=== PATIENT | female | born 1975 | race Two or more races ===

== ENCOUNTER 2020-02-23 20:21 | Emergency (ER) | payer BC, MEDICAID ==
[~2020-02-23] VITALS: Ht 157.5 cm; Wt 68.0 kg
[2020-02-23 21:01] VITALS: BP 170/92
[2020-02-23] MEDS ORDERED: ONDANSETRON ODT 4 MG TAB PO ONE (21:15)
[2020-02-23] MEDS ORDERED: PANTOPRAZOLE 40 MG TAB PO ONE (21:15)
[2020-02-23] MEDS ORDERED: ACETAMINOPHEN/CODEINE#3 (300/30mg) TAB PO ONE (21:15)
[2020-02-23 22:28] LABS: Basophils # (auto) 0 10 ^3/uL (0-0.2); Basophils % (auto) 0.3 % (0.0-2.0); Eosinophils # (auto) 0 10 ^3/uL (0-0.8); Eosinophils % (auto) 0.3 % (0.0-7.0); Hematocrit 30.2 % (36.0-46.0); Hemoglobin 9.5 g/dL (12.2-16.2); Lymphocytes # (auto) 0.8 10 ^3/uL (0.4-5.4); Lymphocytes % (auto) 15.4 % (10.0-50.0); Mean Corpuscular Hemoglobin 24.5 pg (28.0-32.0); Mean Corpuscular Hgb Conc. 31.5 g/dL (32.0-36.0); Mean Corpuscular Volume 77.7 fL (80.0-100.0); Monocytes # (auto) 0.3 10 ^3/uL (0-1.3); Monocytes % (auto) 5.3 % (0.0-12.0); Neutrophils # (auto) 4.1 10 ^3/uL (1.6-8.6); Neutrophils % (auto) 78.7 % (37.0-80.0); Nucleated Red Blood Cells % 0.2 %; Platelet Count (auto) 210 10^3/uL (140-450); Red Blood Cells 3.89 10^6/uL (4.0-5.20); Red Cell Distribution Width 17.4 % (11.8-14.3); White Blood Cell 5.2 10^3/uL (4.4-10.8)
[2020-02-23 22:55] LABS: Alanine Aminotransferase 21 U/L (13-56); Albumin 3.7 g/dL (3.4-5.0); Alkaline Phosphatase 62 U/L (45-117); Amylase 56 U/L (25-115); Anion Gap 5 (5-15); Aspartate Aminotransferase 15 U/L (15-37); BUN/Creatinine Ratio 21.7; Bilirubin, Total 0.4 mg/dL (0.2-1.0); Blood Urea Nitrogen 18 mg/dL (7-18); Calcium 8.5 mg/dL (8.5-10.1); Carbon Dioxide 26 mmol/L (21-32); Chloride 110 mmol/L (98-107); GFR African American 97 mL/min; GFR Non-African American 80 mL/min; Glucose 93 mg/dL (74-106); Lipase 65 U/L (73-393); Potassium 3.1 mmol/L (3.5-5.1); Sodium 141 mmol/L (136-145); Total Protein 7.9 g/dL (6.4-8.2)
[2020-02-23] MEDS ORDERED: POTASSIUM CHL 20 Meq TABLET PO ONE (23:15)
[2020-02-23 23:16] LABS: Urine Bacteria NONE SEEN /hpf (None Seen); Urine Blood 1+ /uL (Negative); Urine Mucus FEW (None Seen); Urine Specific Gravity 1.023 (1.001-1.035); Urine WBC 3 /hpf (0 - 5)
[2020-02-23 23:35] LABS: Amphetamine Screen, Urine NEGATIVE (NEGATIVE); Barbiturate Scree,Urine NEGATIVE (NEGATIVE); Benzodiazephine Screen, Urine NEGATIVE (NEGATIVE); Cannabinoid Screen, Urine POSITIVE (NEGATIVE); Cocaine Screen, Urine NEGATIVE (NEGATIVE)
[2020-02-23 23:42] LABS: Opiate Scree,Urine NEGATIVE (NEGATIVE); Phencyclidine Screen, Urine NEGATIVE (NEGATIVE)
== END 2020-02-24 01:32 | disposition home or self-care (01) ==
LOC: ER 20:24
DX: K29.70 Gastritis, unspecified, without bleeding (principal); K59.00 Constipation, unspecified; D25.9 Leiomyoma of uterus, unspecified; D64.9 Anemia, unspecified; E86.0 Dehydration; E87.6 Hypokalemia; F12.10 Cannabis abuse, uncomplicated; N28.1 Cyst of kidney, acquired; I10 Essential (primary) hypertension; K21.9 Gastro-esophageal reflux disease without esophagitis; Z88.1 Allergy status to other antibiotic agents
CPT/HCPCS: 36415; 74176; 80053; 80307; 81001; 82150; 83690; 84484; 85025; 99284; Q0162

== ENCOUNTER 2021-02-26 17:00 | Emergency (ER) | payer BC, MEDICAID, OTHER ==
[~2021-02-26] VITALS: Ht 157.5 cm; Wt 70.3 kg
[2021-02-26 21:36] VITALS: BP 155/91
== END 2021-02-26 23:57 | disposition home or self-care (01) ==
LOC: ER 17:00
DX: S46.812A Strain of other muscles, fascia and tendons at shoulder and upper arm level, left arm, initial encounter (principal); S23.9XXA Sprain of unspecified parts of thorax, initial encounter; J45.909 Unspecified asthma, uncomplicated; I10 Essential (primary) hypertension; Z88.1 Allergy status to other antibiotic agents; V43.52XA Car driver injured in collision with other type car in traffic accident, initial encounter; Y93.89 Activity, other specified; Y92.410 Unspecified street and highway as the place of occurrence of the external cause; Y99.8 Other external cause status
CPT/HCPCS: 72070; 73060

== ENCOUNTER 2021-11-26 19:36 | Inpatient (IN) | payer BC, MEDICAID ==
[~2021-11-26] VITALS: Ht 157.5 cm; Wt 73.3 kg
[2021-11-26] MEDS ORDERED: NITROGLYCERIN 0.4 MG SL TAB SL ONE ×3 (20:06→21:30)
[2021-11-26] MEDS ORDERED: ASPirin 325 MG TAB PO ONE (20:15)
[2021-11-26 21:12] LABS: Albumin 3.3 g/dL (3.4-5.0); Calcium 8.3 mg/dL (8.5-10.1)
[2021-11-26 21:15] LABS: Basophils # (auto) 0 10 ^3/uL (0-0.2); Basophils % (auto) 0.3 % (0.0-2.0); Eosinophils # (auto) 0.1 10 ^3/uL (0-0.8); Eosinophils % (auto) 0.9 % (0.0-7.0); Hematocrit 37.4 % (36.0-46.0); Hemoglobin 12.1 g/dL (12.2-16.2); Lymphocytes # (auto) 1.5 10 ^3/uL (0.4-5.4); Lymphocytes % (auto) 25.8 % (10.0-50.0); Mean Corpuscular Hemoglobin 29.7 pg (28.0-32.0); Mean Corpuscular Hgb Conc. 32.4 g/dL (32.0-36.0); Mean Corpuscular Volume 91.5 fL (80.0-100.0); Monocytes # (auto) 0.4 10 ^3/uL (0-1.3); Monocytes % (auto) 6.7 % (0.0-12.0); Neutrophils # (auto) 3.9 10 ^3/uL (1.6-8.6); Neutrophils % (auto) 66.3 % (37.0-80.0); Nucleated Red Blood Cells % 0.1 %; Red Blood Cells 4.09 10^6/uL (4.0-5.20); Red Cell Distribution Width 16.5 % (11.8-14.3); White Blood Cell 5.9 10^3/uL (4.4-10.8)
[2021-11-26 21:17] LABS: BUN/Creatinine Ratio 17.7; Bilirubin, Total 0.3 mg/dL (0.2-1.0); Total Protein 6.9 g/dL (6.4-8.2)
[2021-11-26 21:25] LABS: Potassium 2.8 mmol/L (3.5-5.1)
[2021-11-26 21:47] LABS: Alcohol, Urine < 3.0 mg/dL (0-10); Amphetamine Screen, Urine NEGATIVE (NEGATIVE); Barbiturate Scree,Urine NEGATIVE (NEGATIVE); Benzodiazephine Screen, Urine NEGATIVE (NEGATIVE); Cannabinoid Screen, Urine POSITIVE (NEGATIVE); Cocaine Screen, Urine NEGATIVE (NEGATIVE); Opiate Scree,Urine NEGATIVE (NEGATIVE); Phencyclidine Screen, Urine NEGATIVE (NEGATIVE)
[2021-11-26] MEDS ORDERED: POTASSIUM CHL 20 Meq TABLET PO ONE (22:15)
[2021-11-26] MEDS ORDERED: hydrALAZINE HCL 20 MG/ML VL IV ONE ×2 (23:00→23:30)
[2021-11-26] MEDS ORDERED: MORPHINE SULFATE INJ 2 MG/ml SYRG IV PRN (23:30)
[2021-11-26] MEDS ORDERED: TEMAZEPAM 15 MG CAP PO PRN (23:30)
[2021-11-26] MEDS ORDERED: NITROGLYCERIN 0.4 MG SL TAB SL PRN (23:30)
[2021-11-27] MEDS ORDERED: KETOROLAC TROMETH 30 MG/ML 1ML VIAL IV ONE
[2021-11-27] MEDS: cloNIDine HCL 0.1 MG TAB PO PRN ×2 (02:26→12:29)
[2021-11-27 02:55] VITALS: BP 184/99
[2021-11-27 05:00] VITALS: BP_SYST 134; BP_SYST 185; BP_DIAS 105; BP_DIAS 83
[2021-11-27] MEDS ORDERED: hydrALAZINE HCL 20 MG/ML VL IV ONE ×2 (05:15)
[2021-11-27 06:11] LABS: Basophils # (auto) 0 10 ^3/uL (0-0.2); Basophils % (auto) 0.3 % (0.0-2.0); Eosinophils # (auto) 0 10 ^3/uL (0-0.8); Eosinophils % (auto) 0.2 % (0.0-7.0); Hematocrit 38.1 % (36.0-46.0); Hemoglobin 12.7 g/dL (12.2-16.2); Lymphocytes # (auto) 0.9 10 ^3/uL (0.4-5.4); Lymphocytes % (auto) 17.8 % (10.0-50.0); Mean Corpuscular Hemoglobin 30.6 pg (28.0-32.0); Mean Corpuscular Hgb Conc. 33.4 g/dL (32.0-36.0); Mean Corpuscular Volume 91.8 fL (80.0-100.0); Monocytes # (auto) 0.3 10 ^3/uL (0-1.3); Monocytes % (auto) 5.1 % (0.0-12.0); Neutrophils # (auto) 3.8 10 ^3/uL (1.6-8.6); Neutrophils % (auto) 76.6 % (37.0-80.0); Nucleated Red Blood Cells % 0.1 %; Red Blood Cells 4.16 10^6/uL (4.0-5.20); Red Cell Distribution Width 16.1 % (11.8-14.3)
[2021-11-27 06:58] LABS: Albumin 3.2 g/dL (3.4-5.0); BUN/Creatinine Ratio 19.3; Bilirubin, Total 0.5 mg/dL (0.2-1.0); Calcium 8.1 mg/dL (8.5-10.1)
[2021-11-27 07:04] LABS: Potassium 2.8 mmol/L (3.5-5.1)
[2021-11-27 09:00] VITALS: BP 144/88
[2021-11-27] MEDS ORDERED: LISINOPRIL 5 MG TAB PO SCH (10:00)
[2021-11-27] MEDS: PANTOPRAZOLE 40 MG TAB PO SCH (10:02)
[2021-11-27] MEDS ORDERED: POTASSIUM EFFERVESENT TAB 25 MEQ PO ONE (10:45)
[2021-11-27] MEDS: traMADol HCL 50 MG TAB PO PRN ×3 (10:55→22:48)
[2021-11-27] MEDS ORDERED: IOHEXOL 350 MG/ML 100ML IJ ONE (11:25)
[2021-11-27] MEDS: ONDANSETRON HCL 4 MG/2 ML VIAL IV PRN (12:37)
[2021-11-27 13:00] VITALS: BP 170/95
[2021-11-27 17:00] VITALS: BP 103/69
[2021-11-27 21:27] VITALS: BP 147/75
[2021-11-28] MEDS: traMADol HCL 50 MG TAB PO PRN ×3 (04:52→17:17)
[2021-11-28] MEDS: ONDANSETRON HCL 4 MG/2 ML VIAL IV PRN (04:52)
[2021-11-28 04:55] VITALS: BP 143/77
[2021-11-28 09:00] VITALS: BP 154/76
[2021-11-28] MEDS ORDERED: ACETAMINOPHEN 325 MG TAB PO PRN (10:00)
[2021-11-28] MEDS ORDERED: LOSARTAN POTASSIUM 50 MG TAB PO SCH (10:00)
[2021-11-28] MEDS: PANTOPRAZOLE 40 MG TAB PO SCH (10:21)
[2021-11-28] MEDS: SPIRONOLACTONE 25 MG TAB PO SCH (10:21)
[2021-11-28 11:16] LABS: Calcium 8.5 mg/dL (8.5-10.1); Potassium 3.3 mmol/L (3.5-5.1)
[2021-11-28 11:19] LABS: Albumin 3.1 g/dL (3.4-5.0); BUN/Creatinine Ratio 18.6
[2021-11-28 11:21] LABS: Bilirubin, Total 0.7 mg/dL (0.2-1.0); Total Protein 6.6 g/dL (6.4-8.2)
[2021-11-28 13:00] VITALS: BP 151/85
[2021-11-28] MEDS: MORPHINE SULFATE INJ 2 MG/ml SYRG IV PRN ×2 (14:32→20:40)
[2021-11-28 16:25] VITALS: BP 158/76
[2021-11-28 22:00] VITALS: BP 155/77
[2021-11-28] MEDS: cloNIDine HCL 0.1 MG TAB PO PRN (22:49)
[2021-11-29] VITALS (8 sets, daily range): BP systolic 95–144; BP diastolic 59–85
[2021-11-29] MEDS: MORPHINE SULFATE INJ 2 MG/ml SYRG IV PRN ×2 (02:58→20:06)
[2021-11-29] MEDS ORDERED: cloNIDine HCL 0.1 MG TAB PO ONE (09:30)
[2021-11-29] MEDS ORDERED: cloNIDine HCL 0.1 MG TAB PO PRN (09:30)
[2021-11-29] MEDS: PANTOPRAZOLE 40 MG TAB PO SCH (10:33)
[2021-11-29] MEDS: SPIRONOLACTONE 25 MG TAB PO SCH (10:34)
[2021-11-29] MEDS: LOSARTAN POTASSIUM 50 MG TAB PO SCH (10:36)
[2021-11-29 10:52] LABS: Calcium 8.5 mg/dL (8.5-10.1); Potassium 3.5 mmol/L (3.5-5.1)
[2021-11-29] MEDS ORDERED: LIDOCAINE 2%HCL (LOCAL ANESTH.) INJ 20ML MDV ONE (13:01)
[2021-11-29] MEDS ORDERED: IOHEXOL 350 MG/ML 100ML IJ ONE (13:01)
[2021-11-29] MEDS ORDERED: MIDAZOLAM HCL 2MG/2ML 2ml VIAL (1mg/ml) ONE (15:02)
[2021-11-29] MEDS ORDERED: SODIUM CHL 0.9% 0 ML ONE (15:02)
[2021-11-29] MEDS ORDERED: fentaNYL CITRATE 100 MCG/2 ML VL ONE (15:02)
[2021-11-29] MEDS ORDERED: ANGIOMAX 250 MG VIAL IV ONE (15:02)
[2021-11-29] MEDS: POTASSIUM EFFERVESENT TAB 25 MEQ GT SCH (21:29)
[2021-11-30] MEDS: MORPHINE SULFATE INJ 2 MG/ml SYRG IV PRN (01:59)
[2021-11-30 05:27] VITALS: BP 144/78
[2021-11-30 09:00] VITALS: BP 136/94
[2021-11-30] MEDS: POTASSIUM EFFERVESENT TAB 25 MEQ GT SCH (09:57)
[2021-11-30] MEDS: PANTOPRAZOLE 40 MG TAB PO SCH (10:00)
[2021-11-30] MEDS: SPIRONOLACTONE 25 MG TAB PO SCH (10:00)
[2021-11-30] MEDS: LOSARTAN POTASSIUM 50 MG TAB PO SCH (10:02)
[2021-11-30 13:00] VITALS: BP 162/80
[2021-11-30] MEDS ORDERED: GABA100C9 PO (14:36)
[2021-11-30] MEDS ORDERED: LOSA-69 PO (14:36)
[2021-11-30] MEDS ORDERED: NIFE1TAB31 PO (14:36)
[2021-11-30 16:48] VITALS: BP 139/85
[2021-11-30 17:48] VITALS: BP 142/78
[2021-12-01] MEDS ORDERED: NIFEdipine ER 30 MG TAB PO SCH (10:00)
== END 2021-11-30 18:20 | disposition home or self-care (01) | DRG 287 ==
LOC: ER 19:39 → TELE 23:32 → TELE-WESTW 11-27 02:15
PROVIDERS: ADMIT Nurse Practitioner; ATTEND Internal Medicine Nephrology
PROC: 4A023N7 Measurement of Cardiac Sampling and Pressure, Left Heart, Percutaneous Approach (ICD-10-PCS; principal; 2021-11-29)
PROC: B2111ZZ Fluoroscopy of Multiple Coronary Arteries using Low Osmolar Contrast (ICD-10-PCS; 2021-11-29)
PROC: B2151ZZ Fluoroscopy of Left Heart using Low Osmolar Contrast (ICD-10-PCS; 2021-11-29)
DX: I16.1 Hypertensive emergency (principal); J98.11 Atelectasis; R07.89 Other chest pain; E87.6 Hypokalemia; E04.1 Nontoxic single thyroid nodule; F17.200 Nicotine dependence, unspecified, uncomplicated; I10 Essential (primary) hypertension; M25.512 Pain in left shoulder; Z20.822 Contact with and (suspected) exposure to COVID-19; J45.909 Unspecified asthma, uncomplicated; K21.9 Gastro-esophageal reflux disease without esophagitis; Z79.899 Other long term (current) drug therapy; Z82.3 Family history of stroke; Z82.49 Family history of ischemic heart disease and other diseases of the circulatory system; Z83.3 Family history of diabetes mellitus; Z88.1 Allergy status to other antibiotic agents
CPT/HCPCS: 36415; 70450; 71045; 71260; 72141; 73200; 74177; 80048; 80053; 80307; 82088; 83835; 83880; 84244; 84439; 84443; 84484; 85025; 93005; 93306; 93458; 93975; 96374; 96375; 96376; G0378; J1885; J2250; J2405

== ENCOUNTER 2022-05-12 23:29 | Emergency (ER) | payer BC, MEDICAID ==
[~2022-05-12] VITALS: Ht 157.5 cm; Wt 89.4 kg
[~2022-05-12 23:29] MED LIST: GABA100C9 PO; LOSA-69 PO; NIFE1TAB31 PO
[2022-05-13] MEDS ORDERED: ONDANSETRON ODT 4 MG TAB PO ONE (00:30)
[2022-05-13] MEDS ORDERED: OXYCODONE W/ ACETAMINOPHEN 5/325MG TABLET PO ONE (00:30)
[2022-05-13 01:00] LABS: Basophils # (auto) 0 10 ^3/uL (0-0.2); Basophils % (auto) 0.4 % (0.0-2.0); Eosinophils # (auto) 0 10 ^3/uL (0-0.8); Eosinophils % (auto) 0.5 % (0.0-7.0); Hematocrit 40.1 % (36.0-46.0); Hemoglobin 13.2 g/dL (12.2-16.2); Lymphocytes # (auto) 0.8 10 ^3/uL (0.4-5.4); Lymphocytes % (auto) 9.9 % (10.0-50.0); Mean Corpuscular Hemoglobin 30.4 pg (28.0-32.0); Mean Corpuscular Hgb Conc. 32.9 g/dL (32.0-36.0); Mean Corpuscular Volume 92.5 fL (80.0-100.0); Monocytes # (auto) 0.2 10 ^3/uL (0-1.3); Monocytes % (auto) 2.9 % (0.0-12.0); Neutrophils # (auto) 6.7 10 ^3/uL (1.6-8.6); Neutrophils % (auto) 86.3 % (37.0-80.0); Nucleated Red Blood Cells % 0.1 %; Red Blood Cells 4.33 10^6/uL (4.0-5.20); Red Cell Distribution Width 14.1 % (11.8-14.3); White Blood Cell 7.7 10^3/uL (4.4-10.8)
[2022-05-13 01:09] LABS: Albumin 3.6 g/dL (3.4-5.0); BUN/Creatinine Ratio 24.4; Calcium 8.8 mg/dL (8.5-10.1); Potassium 3.3 mmol/L (3.5-5.1)
[2022-05-13 01:12] LABS: Bilirubin, Total 0.2 mg/dL (0.2-1.0); Total Protein 8.1 g/dL (6.4-8.2)
[2022-05-13 01:44] LABS: Urine Blood 1+ /uL (Negative); Urine Specific Gravity 1.022 (1.001-1.035)
[2022-05-13] MEDS ORDERED: PERCOT PO (05:13)
[2022-05-13] MEDS ORDERED: ONDA-144 PO (05:13)
[2022-05-13] MEDS ORDERED: NITR-87 PO (05:13)
[2022-05-13] MEDS ORDERED: cefTRIAXone SOD 1,000 MG VL IM ONE (05:15)
[2022-05-13 08:14] VITALS: BP 159/96
== END 2022-05-13 08:36 | disposition home or self-care (01) ==
LOC: ER 23:29
DX: N39.0 Urinary tract infection, site not specified (principal); N83.202 Unspecified ovarian cyst, left side; K21.9 Gastro-esophageal reflux disease without esophagitis; J45.909 Unspecified asthma, uncomplicated; I10 Essential (primary) hypertension; Z88.1 Allergy status to other antibiotic agents; Z79.899 Other long term (current) drug therapy; Z98.890 Other specified postprocedural states
CPT/HCPCS: 36415; 71045; 74176; 80053; 81003; 83690; 84484; 85025; 99285; Q0162

== ENCOUNTER 2023-02-19 11:53 | Emergency (ER) | payer BC, MEDICAID ==
[~2023-02-19] VITALS: Ht 157.5 cm; Wt 85.0 kg
[~2023-02-19 11:53] MED LIST changes: +GABA-1308 PO; -GABA100C9 PO; -LOSA-69 PO; +LOSA50TA46 PO; +NITR-87 PO; +ONDA-144 PO; +PERCOT PO
[2023-02-19 12:05] VITALS: BP 178/94; PULSE 79; RESP 24; TEMP 98.3; O2SAT 99
[2023-02-19] MEDS ORDERED: IPRATROPIUM BROM 0.5 MG/2.5ML INH SOL NEB ONE ×2 (12:15→14:00)
[2023-02-19] MEDS ORDERED: ALBUTEROL MEDNEB 2.5 mg/3ml NEB NEB ONE (12:15)
[2023-02-19] MEDS ORDERED: methylPREDNISolone SOD SUCC 125 MG/2 ML VL IM ONE (14:00)
[2023-02-19] MEDS ORDERED: ALBU108A5 IN (14:37)
[2023-02-19] MEDS ORDERED: PRED20TA2 PO (14:37)
== END 2023-02-19 14:36 | disposition home or self-care (01) ==
LOC: ER 11:53
DX: J45.901 Unspecified asthma with (acute) exacerbation (principal); K21.9 Gastro-esophageal reflux disease without esophagitis; I10 Essential (primary) hypertension
CPT/HCPCS: 71045; 96372; 99283; J2930

== ENCOUNTER 2023-05-04 18:56 | Emergency (ER) | payer BC, MEDICAID ==
[~2023-05-04] VITALS: Ht 157.5 cm; Wt 85.5 kg
[~2023-05-04 18:56] MED LIST changes: +ALBU108A5 IN; +PRED20TA2 PO
[2023-05-04 19:53] LABS: Basophils # (auto) 0 10 ^3/uL (0-0.2); Basophils % (auto) 0.4 % (0.0-2.0); Eosinophils # (auto) 0 10 ^3/uL (0-0.8); Eosinophils % (auto) 0.1 % (0.0-7.0); Hematocrit 39.1 % (36.0-46.0); Hemoglobin 13.1 g/dL (12.2-16.2); Lymphocytes # (auto) 0.3 10 ^3/uL (0.4-5.4); Lymphocytes % (auto) 9.3 % (10.0-50.0); Mean Corpuscular Hemoglobin 31.5 pg (28.0-32.0); Mean Corpuscular Hgb Conc. 33.5 g/dL (32.0-36.0); Monocytes # (auto) 0.3 10 ^3/uL (0-1.3); Monocytes % (auto) 10.3 % (0.0-12.0); Neutrophils # (auto) 2.7 10 ^3/uL (1.6-8.6); Neutrophils % (auto) 79.9 % (37.0-80.0); Red Blood Cells 4.16 10^6/uL (4.0-5.20); Red Cell Distribution Width 13.7 % (11.8-14.3); White Blood Cell 3.4 10^3/uL (4.4-10.8)
[2023-05-04 20:20] LABS: Alanine Aminotransferase 17 U/L (7-40); Albumin 4.2 g/dL (3.2-4.8); Alkaline Phosphatase 75 U/L (46-116); Anion Gap 3 (5-15); Aspartate Aminotransferase 17 U/L (13-40); BUN/Creatinine Ratio 11.6 (10.0-20.0); Bilirubin, Total 0.3 mg/dL (0.2-1.0); Blood Urea Nitrogen 10 mg/dL (9-23); Calcium 8.7 mg/dL (8.7-10.4); Carbon Dioxide 26 mmol/L (20-30); Chloride 111 mmol/L (98-107); Glucose 103 mg/dL (74-106); Lipase 34 U/L (12-53); Potassium 3.2 mmol/L (3.5-5.1); Sodium 140 mmol/L (136-145)
[2023-05-04 20:21] LABS: Total Protein 7.2 g/dL (5.7-8.2)
[2023-05-04 20:47] LABS: Urine Bacteria NONE SEEN /hpf (None Seen); Urine Blood 2+ /uL (Negative); Urine Clarity Clear (Clear); Urine Color Yellow (Yellow); Urine Mucus FEW (None Seen); Urine Protein, UAD 1+ (Negative); Urine Specific Gravity 1.029 (1.001-1.035); Urine WBC 1 /hpf (0 - 5); Urine pH 6.5 (5.0-8.0)
[2023-05-04 20:49] LABS: COVID19 ANTIGEN SOFIA FIA POSITIVE (NEGATIVE)
[2023-05-05] MEDS ORDERED: ALBU108A5 IN (00:13)
[2023-05-05] MEDS ORDERED: ZOFR4T PO (00:13)
[2023-05-05] MEDS ORDERED: AZITTAB PO (00:13)
[2023-05-05] MEDS ORDERED: FAMO20TA10 PO (00:13)
[2023-05-05] MEDS ORDERED: BENZ200C64 PO (00:13)
[2023-05-05] MEDS ORDERED: SODIUM CHLORIDE 0.9% 1,000 ML IV ONE (00:15)
[2023-05-05] MEDS ORDERED: HYDROcodone-ACET 5/325MG TAB PO ONE (00:15)
[2023-05-05] MEDS ORDERED: ONDANSETRON HCL 4 MG/2 ML VIAL IV ONE (00:15)
[2023-05-05] MEDS ORDERED: PANTOPRAZOLE 40 MG/10 ML VIAL INJ IV ONE (00:15)
[2023-05-05 01:14] VITALS: BP 186/87; PULSE 65; RESP 65; TEMP 100; O2SAT 97
[2023-05-05] MEDS ORDERED: POTASSIUM CHL 20 Meq TABLET PO ONE (02:15)
== END 2023-05-05 02:14 | disposition home or self-care (01) ==
LOC: ER 18:56
DX: U07.1 COVID-19 (principal); E87.6 Hypokalemia; R10.9 Unspecified abdominal pain; R05.9 Cough, unspecified; R11.10 Vomiting, unspecified; R19.7 Diarrhea, unspecified; I10 Essential (primary) hypertension; K21.9 Gastro-esophageal reflux disease without esophagitis; J45.909 Unspecified asthma, uncomplicated; Z98.890 Other specified postprocedural states; Z88.8 Allergy status to other drugs, medicaments and biological substances; Z79.899 Other long term (current) drug therapy
CPT/HCPCS: 36415; 71045; 76705; 80053; 81001; 81025; 83690; 85025; 87426; 96361; 96374; 96375; 99285; C9113; J2405; J7030

== ENCOUNTER 2023-08-27 09:58 | Emergency (ER) | payer BC, MEDICAID ==
[~2023-08-27] VITALS: Ht 157.5 cm; Wt 82.8 kg
[~2023-08-27 09:58] MED LIST changes: +AZITTAB PO; +BENZ200C64 PO; +FAMO20TA10 PO; +LOSA-534 PO; -LOSA50TA46 PO; +ZOFR4T PO
[2023-08-27] MEDS: traMADol HCL 50 MG TAB PO ONE (10:32)
[2023-08-27 10:49] VITALS: BP 148/67; PULSE 54; RESP 17; TEMP 98; O2SAT 98
== END 2023-08-27 12:01 | disposition home or self-care (01) ==
LOC: ER 09:58
DX: S46.912A Strain of unspecified muscle, fascia and tendon at shoulder and upper arm level, left arm, initial encounter (principal); I10 Essential (primary) hypertension; J45.909 Unspecified asthma, uncomplicated; K21.9 Gastro-esophageal reflux disease without esophagitis; Z79.2 Long term (current) use of antibiotics; Z79.899 Other long term (current) drug therapy; Z88.1 Allergy status to other antibiotic agents; X58.XXXA Exposure to other specified factors, initial encounter; Y93.89 Activity, other specified; Y92.89 Other specified places as the place of occurrence of the external cause; Y99.8 Other external cause status
CPT/HCPCS: 73030

== ENCOUNTER → 2024-03-10 | Outpatient (CLI) | payer BC ==
[2024-03-10 08:26] LABS: Basophils # (auto) 0 10 ^3/uL (0-0.2); Basophils % (auto) 0.5 % (0.0-2.0); Eosinophils # (auto) 0 10 ^3/uL (0-0.8); Eosinophils % (auto) 1.2 % (0.0-7.0); Hematocrit 38.4 % (36.0-46.0); Hemoglobin 12.8 g/dL (12.2-16.2); Lymphocytes # (auto) 1.3 10 ^3/uL (0.4-5.4); Lymphocytes % (auto) 32.6 % (10.0-50.0); Mean Corpuscular Hgb Conc. 33.3 g/dL (32.0-36.0); Mean Corpuscular Volume 96.2 fL (80.0-100.0); Monocytes # (auto) 0.3 10 ^3/uL (0-1.3); Monocytes % (auto) 7.2 % (0.0-12.0); Neutrophils # (auto) 2.3 10 ^3/uL (1.6-8.6); Neutrophils % (auto) 58.5 % (37.0-80.0); Platelet Count (auto) 177 10^3/uL (140-450); Red Cell Distribution Width 13.5 % (11.8-14.3); White Blood Cell 3.9 10^3/uL (4.4-10.8)
[2024-03-10 09:39] LABS: Alanine Aminotransferase 20 U/L (7-40); Albumin 3.9 g/dL (3.2-4.8); Alkaline Phosphatase 78 U/L (46-116); Anion Gap 4 (5-15); BUN/Creatinine Ratio 16.3 (10.0-20.0); Blood Urea Nitrogen 14 mg/dL (9-23); Calcium 9.3 mg/dL (8.7-10.4); Carbon Dioxide 30 mmol/L (20-31); Cholesterol 186 mg/dL (< 200); Glucose 94 mg/dL (74-106); HDL Cholesterol 51 mg/dL (40-59); Potassium 3.7 mmol/L (3.5-5.1); Sodium 143 mmol/L (136-145); Triglycerides 46 mg/dL (< 150)
[2024-03-10 09:40] LABS: Bilirubin, Total 0.3 mg/dL (0.2-1.0); Total Protein 6.7 g/dL (5.7-8.2)
[2024-03-10 09:46] LABS: Aspartate Aminotransferase 11 U/L (13-40); Chloride 109 mmol/L (98-107); LDL Cholesterol 123 mg/dL (< 100)
== END | disposition home or self-care (01) ==
LOC: LAB 07:47
PROVIDERS: ATTEND Nurse Practitioner Family
DX: Z00.01 Encounter for general adult medical examination with abnormal findings (principal); I10 Essential (primary) hypertension; E87.6 Hypokalemia
CPT/HCPCS: 36415; 80053; 80061; 84443; 85025

== ENCOUNTER 2024-03-24 10:55 | Emergency (ER) | payer BC ==
[~2024-03-24] VITALS: Ht 157.5 cm; Wt 77.0 kg
--- NOTE | 2024-03-24 11:44 | DVH ---
XY CHEST TWO VIEWS ROUTINE CLINICAL HISTORY: cough COMPARISON: Chest radiograph 05/04/2023 TECHNIQUE: Frontal and lateral view of the chest was obtained FINDINGS: Lines and Tubes: None Lungs: No focal consolidation. Pleura: No effusion. No pneumothorax. Cardiomediastinal contours: Unremarkable Bones: No acute osseous abnormality. IMPRESSION: 1. No radiographic evidence of acute cardiopulmonary disease. HS:Y
--- NOTE | 2024-03-24 12:00 | ED.PDOC ---
History of Present Illness HPI Comments 48-year-old female who comes in with chief complaint of cough and some shortness for breath. The patient denies any fever or chills. The patient was also stating that she is having chest pain when she coughs. She was actually seen at the urgent care yesterday but they did not give her any treatment and the patient was then sent home. The patient now returns with an increased cough. The patient has no other complaints at this time. Chief Complaint: Shortness of Breath Time Seen by MD: 11:14 Primary Care Provider: ENRICO ANAND Reviewed Notes: Nurses Notes, Medications, Allergies (Allergies to amoxicillin) Allergies: Coded Allergies: Amoxicillin (Verified Allergy, Unknown, 02/23/20) Home Meds Active Scripts Azithromycin (Zithromax) 1 Gm Pow, 1 PACK PO ONCE, #1 PACK Prov:JENNIFER GARCIA MD 03/24/24 Methylprednisolone (Medrol Dosepak) 4 Mg Shaheen, 4 MG PO UD, #21 TAB UAD Prov:JENNIFER GARCIA MD 03/24/24 Azithromycin (Zithromax Z-Shaheen) 250 Mg Tab, 1 TAB PO DAILY for 5 Days, #6 TAB Tablets today then 1 tablet start tomorrow for 4 days with food Prov:OBI COLLIER Q SEARCH MARKETING SPECIALIST 05/05/23 Albuterol Sulfate (Albuterol Sulfate Hfa) 108 Mcg/Act Aer, 1 PUFF IN Q4HPRN PRN, #1 AER As needed for cough nasal congestion shortness of breath or wheeze Prov:OBI COLLIER Q SEARCH MARKETING SPECIALIST 05/05/23 Benzonatate (Benzonatate) 200 Mg Cap, 1 CAP PO TID, #30 CAP as needed for cough Prov:DOUGLAS COLLIERA Q SEARCH MARKETING SPECIALIST 05/05/23 Ondansetron Odt 4MG Tab (ZOFRAN PO) 4 Mg Tb, 1 TAB PO Q8HPRN PRN, #20 TAB Needed for vomiting and nausea ODT TAB-DISSOLVE IN MOUTH, THEN SWALLOW Prov:OBI COLLIER Q SEARCH MARKETING SPECIALIST 05/05/23 Famotidine (PEPCID TABLET) 20 Mg Tb, 1 TAB PO BID for 30 Days, #60 TAB Prov:DOUGLAS COLLIERA Q SEARCH MARKETING SPECIALIST 05/05/23 Prednisone (Prednisone) 20 Mg Tab, 60 MG PO DAILY, #15 MG Prov:EDUAR STERLING 02/19/23 Albuterol Sulfate (Albuterol Sulfate Hfa) 108 Mcg/Act Aer, 108 MCG IN QID, #90 AER Prov:EDUAR STERLING 02/19/23 Ondansetron (Zofran) 4 Mg Tab, 4 MG PO BID for 7 Days, #14 MG Prov:DAREN PARIS MD 05/13/22 Nitrofurantoin Monohydrate Mac (Macrobid) 100 Mg Cap, 100 MG PO BID for 7 Days, #14 CAP Prov:DAREN PARIS MD 05/13/22 Oxycodone W/ Acetaminophen (Percocet 5/325MG) 1 Tab Tb, 1 TAB PO BID for 7 Days, #14 TAB Prov:DAREN PARIS MD 05/13/22 Gabapentin (Gabapentin) 100 Mg Cap, 1 CAP PO TID, #90 CAP 1 Refill Prov:JAROD VELASCO DO 11/30/21 Nifedipine (Nifedipine Er) 30 Mg Tab, 60 MG PO DAILY for 60 Days, #120 TAB 2 Refills Prov:JAROD VELASCO DO 11/30/21 Losartan Potassium (Losartan Potassium) 50 Mg Tab, 75 MG PO DAILY for 30 Days, #45 TAB 1 Refill Prov:JAROD VELASCO DO 11/30/21 Information Source: Patient Mode of Arrival: Ambulatory Severity: Moderate Timing: Days Duration: Since onset Prehospital treatment: None Associated signs and symptoms Cough with some shortness a breath but no fever Past Medical History PAST MEDICAL HISTORY: Asthma, GERD, HTN Surgical History: , Hernia Repair, Hysterectomy SAMPLE ROOM SUPERVISOR History: Denies all SAMPLE ROOM SUPERVISOR Hx Family History Family History: Reviewed,noncontributory to illness Social History Smoker: Non-Smoker Alcohol: Occasionally Drugs: Marijuana Lives In: Home Constitutional: denies: chills, diaphoresis, fatigue, fever, malaise, sweats, weakness, others EENTM: denies: blurred vision, double vision, ear bleeding, ear discharge, ear drainage, ear pain, ear ringing, eye pain, eye redness, hearing loss, mouth pain, mouth swelling, nasal discharge, nose bleeding, nose congestion, nose pain, photophobia, tearing, throat pain, throat swelling, voice changes, others Respiratory: reports: cough, shortness of breath; denies: hemoptysis, orthopnea, SOB at rest, SOB with excertion, stridor, wheezing, others Cardiovascular: denies: chest pain, dizzy spells, diaphoresis, Dyspnea on exertion, edema, irregular heart beat, left arm pain, lightheadedness, palpitations, PND, syncope, others Gastrointestinal: denies: abdomen distended, abdominal pain, blood streaked bowels, constipated, diarrhea, dysphagia, difficulty swallowing, hematemesis, melena, nausea, poor appetite, poor fluid intake, rectal bleeding, rectal pain, vomiting, others Genitourinary: denies: abnormal vagina bleeding, burning, dyspareunia, dysuria, flank pain, frequency, hematuria, incontinence, pain, , vagina discharge, urgency, others Neurological: denies: dizziness, fainting, headache, left sided numbness, left sided weakness, numbness, paresthesia, pre-existing deficit, right sided numbness, right sided weakness, seizure, speech problems, tingling, tremors, weakness, others Musculoskeletal: denies: back pain, gout, joint pain, joint swelling, muscle pain, muscle stiffness, neck pain, others Integumetry: denies: bruises, change in color, change in hair/nails, dryness, laceration, lesions, lumps, rash, wounds, others Allergic/Immunocompromised: denies: Difficulty Healing, Frequent Infections, Hives, Itching, others Hematologic/Lymphatic: denies: anemia, blood clots, easy bleeding, easy bruising, swollen glands, others Endocrine: denies: excessive hunger, excessive sweating, excessive thirst, excessive urination, flushing, intolerance to cold, intolerance to heat, unexplained weight gain, unexplained weight loss, others Psychiatric: denies: anxiety, bipolar disorder, depression, hopeless, panic disorder, schizophrenia, sleepless, suicidal, others Physical Exam General Appearance: No Apparent Distress HEENT: Normal ENT Inspection, Pharynx Normal, TMs Normal Neck: Full Range of Motion, Non-Tender, Normal, Normal Inspection Respiratory: Chest Non-Tender, Decreased Breath Sounds, No Accessory Muscle Use, Wheezing Cardiovascular: No Edema, No JVD, No Murmur, No Gallop, Normal Peripheral Pulses, Regular Rate/Rhythm Breast Exam: Deferred Gastrointestinal: No Organomegaly, Non Tender, No Pulsatile Mass, Normal Bowel Sounds, Soft Genitalia: Deferred Pelvic: Deferred Rectal: Deferred Extremities: No calf tenderness, Normal capillary refill, Normal inspection, Normal range of motion, Non-tender, No pedal edema Musculoskeletal : Apperance: Normal Neurologic: Alert, mortgage collector II-XII nml as Tested, No Motor Deficits, Normal Affect, Normal Mood, No Sensory Deficits Cerebellar Function: Normal Reflexes: Normal Skin: Dry, Normal Color, Warm Lymphatic: No Adenopathy Was a procedure done? Was a procedure done?: No Differential Dx Considerations may include: Bronchitis, pneumonia X-Ray, Labs, Meds, VS Vital Signs Date Time Temp Pulse Resp B/P (MAP) Pulse Ox O2 Delivery O2 Flow Rate FiO2 03/24/24 12:21 19 94 Room Air* 0 21 03/24/24 12:09 98.1 83 19 152/89 (110) 98 98.1 03/24/24 12:09 83 19 98 03/24/24 11:13 19 99 Room Air* 0 21 03/24/24 11:08 97.3 72 19 151/82 (105) 99 Lab Test 03/24/24 14:38 Range/Units Influenza Type A Antigen Negative Negative Influenza Type B Antigen Negative Negative SARS-CoV-2 Antigen (Rapid) Negative NEGATIVE Current Medications Medications (Trade) Dose Ordered Sig/Doris Route Start Time Stop Time Status Last Admin Albuterol (Ventolin Medneb) 5 mg ONCE ONCE [facility] 03/24/24 11:30 03/24/24 11:31 DC 03/24/24 12:20 Ipratropium [place] (Atrovent Medneb) 0.5 mg ONCE ONCE [facility] 03/24/24 11:30 03/24/24 11:31 DC 03/24/24 12:21 The chest x-ray shows peribronchial cuffing The influenza a, influenza B and COVID test are negative The patient was given a breathing treatment of albuterol and Atrovent and states that she is feeling better The patient was being discharged Images Reviewed?: Images reviewed and evaluated by me Time of 1ST Reevaluation: 11:59 Reevaluation 1ST: Improved Patient Education/Counseling: Diagnosis, Treatment, Prognosis, Need For Follow Up Family Education/Counseling: Diagnosis, Treatment, Prognosis, Need For Follow Up Departure 1 Departure Time of Disposition: 15:33 Impression: Primary Impression: Acute bronchitis Qualified Codes: J20.9 - Acute bronchitis, unspecified Disposition: HOME / SELF CARE / HOMELESS Condition: Fair e-Prescriptions Azithromycin (Zithromax) 1 Gm Pow 1 PACK PO ONCE, #1 PACK Prov: JENNIFER GARCIA MD 03/24/24 Methylprednisolone (Medrol Dosepak) 4 Mg Shaheen 4 MG PO UD, #21 TAB UAD Prov: JENNIFER GARCIA MD 03/24/24 Discharged With: Self Critical Care Note Critical Care Time?: No Stability Stability form required: No Heart Score Heart Score: Heart Score Response (Comments) Value History N/A 0 EKG N/A 0 Age N/A 0 Risk Factors N/A 0 Troponin N/A 0 Total 0 JENNIFER GARCIA MD Mar 24, 2024 12:00
[2024-03-24] MEDS ORDERED: METH4PAK PO (12:01)
[2024-03-24] MEDS ORDERED: AZIT1POW PO (12:01)
[2024-03-24] MEDS: ALBUTEROL SULF 2.5 MG/0.5ML(0.5%) NEB SOLN HHN ONE (12:20)
[2024-03-24] MEDS: IPRATROPIUM BROM 0.5 MG/2.5ML INH SOL HHN ONE (12:21)
[2024-03-24 15:06] LABS: COVID19 ANTIGEN SOFIA FIA NEGATIVE (NEGATIVE); Rapid Influenza A Negative (Negative); Rapid Influenza B Negative (Negative)
[2024-03-24 15:58] VITALS: BP 188/98; PULSE 66; RESP 15; TEMP 98.2; O2SAT 97
== END 2024-03-24 16:21 | disposition home or self-care (01) ==
LOC: ER 10:55
DX: J20.9 Acute bronchitis, unspecified (principal); J45.909 Unspecified asthma, uncomplicated; K21.9 Gastro-esophageal reflux disease without esophagitis; I10 Essential (primary) hypertension; F12.90 Cannabis use, unspecified, uncomplicated; Z98.890 Other specified postprocedural states; Z88.1 Allergy status to other antibiotic agents; Z90.710 Acquired absence of both cervix and uterus; Z79.899 Other long term (current) drug therapy; Z20.822 Contact with and (suspected) exposure to COVID-19
CPT/HCPCS: 36415; 71046; 87426; 87804; 94640

== ENCOUNTER 2024-08-03 15:19 | Inpatient (IN) | payer BC ==
[~2024-08-03] VITALS: Ht 157.5 cm; Wt 82.0 kg
[~2024-08-03 15:19] MED LIST changes: +AZIT1POW PO; +METH4PAK PO
--- NOTE | 2024-08-03 15:38 | ED.PDOC ---
GI ASSESSMENT HPI Comments THIS IS A 48-YEAR-OLD FEMALE PATIENT PRESENTS IN THE ED CHIEF COMPLAINT EPIGASTRIC PAIN. PATIENT WAS STATES EPIGASTRIC PAIN OVER THE PAST 24 HOURS DESCRIBES SHARP SHOOTING PAIN 7/10 ON PAIN SCALE. SHE NOTES THAT SHE WAS HAD THIS PAIN BEFORE IN THE PAST AND HE WAS SEEN IN THE ER AND HAD IMAGING BLOOD WORK DONE WITH NO ABNORMAL FINDINGS. SHE DOES NOTE SOME NAUSEA WITHOUT VOMITING DENIES DIARRHEA, CHEST PAIN, SHORTNESS A BREATH, DIFFICULTY BREATHING. Time Seen by MD: 15:21 Primary Care Provider: ENRICO ANAND Reviewed Notes: Nurses Notes, Medications, Allergies Allergies: Coded Allergies: Amoxicillin (Verified Allergy, Unknown, 02/23/20) Home Meds Active Scripts Azithromycin (Zithromax) 1 Gm Pow, 1 PACK PO ONCE, #1 PACK Prov:JENNIFER GARCIA MD 03/24/24 Methylprednisolone (Medrol Dosepak) 4 Mg Shaheen, 4 MG PO UD, #21 TAB UAD Prov:JENNIFER GARCIA MD 03/24/24 Azithromycin (Zithromax Z-Shaheen) 250 Mg Tab, 1 TAB PO DAILY for 5 Days, #6 TAB Tablets today then 1 tablet start tomorrow for 4 days with food Prov:DOUGLAS COLLIERA Q PERSONAL FINANCIAL PLANNER 05/05/23 Albuterol Sulfate (Albuterol Sulfate Hfa) 108 Mcg/Act Aer, 1 PUFF IN Q4HPRN PRN, #1 AER As needed for cough nasal congestion shortness of breath or wheeze Prov:OBI COLLIER Q PERSONAL FINANCIAL PLANNER 05/05/23 Benzonatate (Benzonatate) 200 Mg Cap, 1 CAP PO TID, #30 CAP as needed for cough Prov:OBI COLLIER Q PERSONAL FINANCIAL PLANNER 05/05/23 Ondansetron Odt 4MG Tab (ZOFRAN PO) 4 Mg Tb, 1 TAB PO Q8HPRN PRN, #20 TAB Needed for vomiting and nausea ODT TAB-DISSOLVE IN MOUTH, THEN SWALLOW Prov:DOUGLAS CLOLIERA Q PERSONAL FINANCIAL PLANNER 05/05/23 Famotidine (PEPCID TABLET) 20 Mg Tb, 1 TAB PO BID for 30 Days, #60 TAB Prov:DOUGLAS COLLIERA Q PERSONAL FINANCIAL PLANNER 05/05/23 Prednisone (Prednisone) 20 Mg Tab, 60 MG PO DAILY, #15 MG Prov:EDUAR STERLING 02/19/23 Albuterol Sulfate (Albuterol Sulfate Hfa) 108 Mcg/Act Aer, 108 MCG IN QID, #90 AER Prov:EDUAR STERLING 02/19/23 Ondansetron (Zofran) 4 Mg Tab, 4 MG PO BID for 7 Days, #14 MG Prov:DAREN PARIS MD 05/13/22 Nitrofurantoin Monohydrate Mac (Macrobid) 100 Mg Cap, 100 MG PO BID for 7 Days, #14 CAP Prov:DAREN PARIS MD 05/13/22 Oxycodone W/ Acetaminophen (Percocet 5/325MG) 1 Tab Tb, 1 TAB PO BID for 7 Days, #14 TAB Prov:DAREN PARIS MD 05/13/22 Gabapentin (Gabapentin) 100 Mg Cap, 1 CAP PO TID, #90 CAP 1 Refill Prov:JAROD VELASCO DO 11/30/21 Nifedipine (Nifedipine Er) 30 Mg Tab, 60 MG PO DAILY for 60 Days, #120 TAB 2 Refills Prov:JAROD VELASCO DO 11/30/21 Losartan Potassium (Losartan Potassium) 50 Mg Tab, 75 MG PO DAILY for 30 Days, #45 TAB 1 Refill Prov:JAROD VELASCO DO 11/30/21 Information Source: Patient Past Medical History PAST MEDICAL HISTORY: Asthma, GERD, HTN Surgical History: , Hernia Repair, Hysterectomy 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 ENGINEER Hx Family History Family History: Reviewed,noncontributory to illness Social History Smoker: Non-Smoker Alcohol: Occasionally Drugs: Marijuana Lives In: Home Constitutional: denies: chills, diaphoresis, fatigue, fever, malaise, sweats, weakness, others EENTM: denies: blurred vision, double vision, ear bleeding, ear discharge, ear drainage, ear pain, ear ringing, eye pain, eye redness, hearing loss, mouth pain, mouth swelling, nasal discharge, nose bleeding, nose congestion, nose pain, photophobia, tearing, throat pain, throat swelling, voice changes, others Respiratory: denies: cough, hemoptysis, orthopnea, SOB at rest, shortness of breath, SOB with excertion, stridor, wheezing, others Cardiovascular: denies: chest pain, dizzy spells, diaphoresis, Dyspnea on exertion, edema, irregular heart beat, left arm pain, lightheadedness, palpitations, PND, syncope, others Gastrointestinal: reports: abdomen distended; denies: abdominal pain, blood streaked bowels, constipated, diarrhea, dysphagia, difficulty swallowing, hematemesis, melena, nausea, poor appetite, poor fluid intake, rectal bleeding, rectal pain, vomiting, others Genitourinary: reports: dysuria; denies: abnormal vagina bleeding, burning, dyspareunia, flank pain, frequency, hematuria, incontinence, pain, , vagina discharge, urgency, others Neurological: denies: dizziness, fainting, headache, left sided numbness, left sided weakness, numbness, paresthesia, pre-existing deficit, right sided numbness, right sided weakness, seizure, speech problems, tingling, tremors, weakness, others Musculoskeletal: denies: back pain, gout, joint pain, joint swelling, muscle pain, muscle stiffness, neck pain, others Integumetry: denies: bruises, change in color, change in hair/nails, dryness, laceration, lesions, lumps, rash, wounds, others Allergic/Immunocompromised: denies: Difficulty Healing, Frequent Infections, Hives, Itching, others Hematologic/Lymphatic: denies: anemia, blood clots, easy bleeding, easy bruising, swollen glands, others Endocrine: denies: excessive hunger, excessive sweating, excessive thirst, excessive urination, flushing, intolerance to cold, intolerance to heat, unexplained weight gain, unexplained weight loss, others Psychiatric: denies: anxiety, bipolar disorder, depression, hopeless, panic disorder, schizophrenia, sleepless, suicidal, others Physical Exam General Appearance: No Apparent Distress, Normal HEENT: Pharynx Normal Neck: Full Range of Motion, Non-Tender Respiratory: Chest Non-Tender, No Accessory Muscle Use, No Respiratory Distress, Normal Breath Sounds Cardiovascular: No Edema, No JVD, No Murmur, No Gallop, Normal Peripheral Pulses, Regular Rate/Rhythm Breast Exam: Deferred Gastrointestinal: Distended, Epigastric (TENDERNESS), No Organomegaly, Non Tender, No Pulsatile Mass, Normal Bowel Sounds, Soft Genitalia: Deferred Pelvic: Deferred Rectal: Deferred Extremities: Normal capillary refill, Normal inspection, Normal range of motion, Non-tender, No pedal edema Musculoskeletal : Apperance: Normal Neurologic: Alert, director global medical affairs II-XII nml as Tested, No Motor Deficits, Normal Affect, Normal Mood, No Sensory Deficits Cerebellar Function: Normal Reflexes: Normal Skin: Dry, Normal Color, Warm Lymphatic: No Adenopathy Was a procedure done? Was a procedure done?: No GI differential Dx Differential Diagnosis: Cholangitis, Cholecystitis, Diverticular disease, Esophagitis, Gastritis/PUD, Gastroenteritis, UTI X-Ray, Labs, Meds, VS Vital Signs Date Time Temp Pulse Resp B/P (MAP) Pulse Ox O2 Delivery O2 Flow Rate FiO2 08/03/24 22:15 68 23 148/80 (102) 97 08/03/24 21:00 99.6 75 24 166/87 (113) 97 99.6 08/03/24 19:48 72 21 179/111 08/03/24 19:34 75 22 210/109 08/03/24 19:30 99.8 80 18 210/109 (142) 94 99.8 08/03/24 19:30 73 15 97 Room Air* 0 21 08/03/24 16:49 99.9 79 16 162/88 (112) 95 99.9 08/03/24 16:49 79 16 95 Room Air 08/03/24 15:33 100.6 83 18 156/88 (110) 98 100.6 Lab Test 08/03/24 23:08 08/03/24 15:55 08/03/24 15:41 Range/Units Potassium Level Pending 2.9 L 3.5-5.1 mmol/L Lactic Acid Level Pending Thyroid Stimulating Hormone (TSH) Pending White Blood Count 6.9 4.4-10.8 10^3/uL Red Blood Count 4.14 4.0-5.20 10^6/uL Hemoglobin 13.3 12.2-16.2 g/dL Hematocrit 39.1 36.0-46.0 % Mean Corpuscular Volume 94.5 80.0-100.0 fL Mean Corpuscular Hemoglobin 32.2 H 28.0-32.0 pg Mean Corpuscular Hemoglobin Concent 34.1 32.0-36.0 g/dL Red Cell Distribution Width 13.2 11.8-14.3 % Platelet Count 175 140-450 10^3/uL Mean Platelet Volume 9.3 6.9-10.8 fL Neutrophils (%) (Auto) 86.7 H 37.0-80.0 % Lymphocytes (%) (Auto) 7.6 L 10.0-50.0 % Monocytes (%) (Auto) 4.9 0.0-12.0 % Eosinophils (%) (Auto) 0.5 0.0-7.0 % Basophils (%) (Auto) 0.3 0.0-2.0 % Neutrophils # (Auto) 6.0 1.6-8.6 10 ^3/uL Lymphocytes # (Auto) 0.5 0.4-5.4 10 ^3/uL Monocytes # (Auto) 0.3 0-1.3 10 ^3/uL Eosinophils # (Auto) 0 0-0.8 10 ^3/uL Basophils # (Auto) 0 0-0.2 10 ^3/uL Nucleated Red Blood Cells 0.0 % Sodium Level 140 136-145 mmol/L Chloride Level 110 H 98-107 mmol/L Carbon Dioxide Level 26 20-31 mmol/L Anion Gap 4 L 5-15 Blood Urea Nitrogen 14 9-23 mg/dL Creatinine 0.80 0.550-1.02 mg/dL Glomerular Filtration Rate Calc 92 >90 mL/min BUN/Creatinine Ratio 17.5 10.0-20.0 Serum Glucose 95 74-106 mg/dL Calcium Level 9.1 8.7-10.4 mg/dL Total Bilirubin 0.3 0.2-1.0 mg/dL Aspartate Amino Transferase (AST) 11 L 13-40 U/L Alanine Aminotransferase (ALT) 13 7-40 U/L Alkaline Phosphatase 83 46-116 U/L Total Protein 7.2 5.7-8.2 g/dL Albumin 4.3 3.2-4.8 g/dL Lipase 32 12-53 U/L Urine Color Light-yellow Yellow Urine Clarity Clear Clear Urine pH 6.0 5.0-9.0 Urine Specific Mongo 1.024 1.001-1.035 Urine Protein Negative Negative Urine Ketones Negative Negative Urine Blood 2+ H Negative /uL Urine Nitrite Negative Negative Urine Bilirubin Negative Negative Urine Urobilinogen Normal Negative mg/dL Urine Leukocyte Esterase Negative Negative /uL Urine RBC 14 0 - 4 /hpf Urine Microscopic WBC 1 0-5 /HPF Urine Squamous Epithelial Cells Few <5 /hpf Urine Bacteria None seen None Seen /hpf Urine Mucus Few None Seen Urine Glucose Normal Normal mg/dL Current Medications Medications (Trade) Dose Ordered Sig/Doris Route Start Time Stop Time Status Last Admin Al Hydrox/Mg Hydrox/Simethicone (Maalox Plus) 30 ml ONCE ONCE PO 08/03/24 15:45 08/03/24 15:46 DC 08/03/24 17:26 Belladonna Alkaloids/ Phenobarbital ( Elixir) 5 ml ONCE ONCE PO 08/03/24 15:45 08/03/24 15:46 DC 08/03/24 15:45 Lidocaine HCl (Xylocaine 2% Viscous) 5 ml ONCE ONCE PO 08/03/24 15:45 08/03/24 15:46 DC 08/03/24 17:26 Sodium Chloride 1,000 ml @ 75 mls/hr [id number] ONCE IV 08/03/24 18:30 08/04/24 07:49 08/03/24 20:03 Ceftriaxone Sodium 50 ml @ 100 mls/hr ONCE ONCE IV 08/03/24 18:30 08/03/24 18:59 DC 08/03/24 20:06 Ondansetron HCl (Zofran) 4 mg ONCE ONCE IV 08/03/24 18:30 08/03/24 18:31 DC 08/03/24 19:34 Potassium Bicarbonate (Klor-Con/Ef) 50 meq ONCE ONCE PO 08/03/24 18:30 08/03/24 18:31 DC 08/03/24 20:08 Morphine Sulfate 1 mg ONCE ONCE IV 08/03/24 19:34 08/03/24 19:58 DC 08/03/24 19:34 Morphine Sulfate 2 mg ONCE ONCE IV 08/03/24 19:45 08/03/24 19:46 DC 08/03/24 19:48 Potassium Chloride 50 ml @ 25 mls/hr ONCE ONCE IV 08/03/24 20:15 08/03/24 22:14 DC 08/03/24 21:46 X-Ray, Labs, Meds, VS Comment IMPRESSION: 1. Left lower lobe pulmonary opacities suggestive of pneumonia. No pleural effusion. 2. Small sliding hiatal hernia. 3. Mild fullness of the bilateral renal pelvises that may represent hydronephrosis or extrarenal pelvis. 4. Circumferential mural thickening of the urinary bladder that could be at least in part due to lack of distention. Recommend correlation with urinalysis to rule out cystitis and follow-up by ultrasound to ensure regression and benignity. PLAN: Patient placed for admission. Left lower lobe pneumonia, hydronephrosis, hypokalemia, in urinary tract infection Time of 1ST Reevaluation: 15:37 Reevaluation 1ST: Unchanged Patient Education/Counseling: Diagnosis, Treatment, Prognosis, Need For Follow Up Family Education/Counseling: No Family Present Departure 1 Departure Time of Disposition: 18:22 Impression: Primary Impression: Pneumonia Qualified Codes: J18.9 - Pneumonia, unspecified organism Additional Impressions: Hydronephrosis Qualified Codes: N13.39 - Other hydronephrosis Cystitis Hypokalemia Disposition: 09 ADMITTED INPATIENT Condition: Stable Discharged With: Self Critical Care Note Critical Care Time?: No Stability Stability form required: KURT Mead Aug 03, 2024 15:38
[2024-08-03] MEDS: DONNATAL 5ml ORAL Elix (BELLADONNA ALK-PHENOBARB) PO ONE (15:45)
[2024-08-03 16:06] LABS: Urine Bacteria None Seen /hpf (None Seen)
[2024-08-03 16:08] LABS: Basophils # (auto) 0 10 ^3/uL (0-0.2); Basophils % (auto) 0.3 % (0.0-2.0); Eosinophils # (auto) 0 10 ^3/uL (0-0.8); Eosinophils % (auto) 0.5 % (0.0-7.0); Hematocrit 39.1 % (36.0-46.0); Hemoglobin 13.3 g/dL (12.2-16.2); Lymphocytes # (auto) 0.5 10 ^3/uL (0.4-5.4); Lymphocytes % (auto) 7.6 % (10.0-50.0); Mean Corpuscular Hemoglobin 32.2 pg (28.0-32.0); Mean Corpuscular Hgb Conc. 34.1 g/dL (32.0-36.0); Mean Corpuscular Volume 94.5 fL (80.0-100.0); Monocytes # (auto) 0.3 10 ^3/uL (0-1.3); Monocytes % (auto) 4.9 % (0.0-12.0); Neutrophils % (auto) 86.7 % (37.0-80.0); Platelet Count (auto) 175 10^3/uL (140-450); Red Blood Cells 4.14 10^6/uL (4.0-5.20); Red Cell Distribution Width 13.2 % (11.8-14.3); White Blood Cell 6.9 10^3/uL (4.4-10.8)
[2024-08-03 16:23] LABS: Alanine Aminotransferase 13 U/L (7-40); Albumin 4.3 g/dL (3.2-4.8); Alkaline Phosphatase 83 U/L (46-116); Anion Gap 4 (5-15); BUN/Creatinine Ratio 17.5 (10.0-20.0); Bilirubin, Total 0.3 mg/dL (0.2-1.0); Blood Urea Nitrogen 14 mg/dL (9-23); Calcium 9.1 mg/dL (8.7-10.4); Carbon Dioxide 26 mmol/L (20-31); Glucose 95 mg/dL (74-106); Lipase 32 U/L (12-53); Sodium 140 mmol/L (136-145); Total Protein 7.2 g/dL (5.7-8.2)
[2024-08-03 16:28] LABS: Aspartate Aminotransferase 11 U/L (13-40); Chloride 110 mmol/L (98-107); Potassium 2.9 mmol/L (3.5-5.1)
[2024-08-03 16:32] LABS: Urine Blood 2+ /uL (Negative); Urine Clarity Clear (Clear); Urine Color Light-Yellow (Yellow); Urine Mucus FEW (None Seen); Urine Protein, UAD Negative (Negative); Urine Specific Gravity 1.024 (1.001-1.035); Urine Squamous Epithelial Cell FEW /hpf (<5); Urine Urobilinogen Normal (Negative); Urine WBC 1 /HPF (0-5)
[2024-08-03] MEDS: MAALOX PLUS or MAALOX 30 ML PO ONE (17:26)
[2024-08-03] MEDS: LIDOCAINE VISCOUS 2% 15ML UD PO ONE (17:26)
--- NOTE | 2024-08-03 18:11 | DVH ---
Procedure: CT CT AB PEL WO CON-NO ORAL OR IV 08/03/2024 05:02 PM Indication: diffuse abd pain Comparison Study: CT ABD PELVIS WO CONTRAST on DOS: 05/12/22, [facility] on DOS: 11/27/21 Technique: Axial images were obtained and reformatted in coronal and sagittal planes. All CT scans at this medical facility are performed using dose modulation techniques as appropriate to a performed e xam including the following: Automated exposure control was utilized; adjustment of the MA and/or KV according to patient size; and use of iterative reconstruction technique. CT Dose: CTDI volume is 17. 97 mGy. Dose-length product is 826.99 mGy*cm FINDINGS: Lower Chest: Small opacities are seen in the left lower lobe. Hepatobiliary: Unremarkable. Spleen: Unremarkable. Pancreas: Unremarkable. Adrenal Glands: Unremarkable. tract: The kidneys are normal in size bilaterally . There is mild fullness of the bilateral renal pelvises. No urinary calculi noted. A 3 cm cyst in the upper pole of the left kidney noted. Circumfe rential mural thickening of the urinary bladder GI tract: The stomach is grossly normal in appearance. No evidence of small bowel obstruction. The la rge bowel is unremarkable. The appendix is normal. Lymphatics: No mesenteric, retroperitoneal or periportal lymphadenopathy. Vasculature: Aorta is normal in caliber. Scattered calcified plaques are noted. Pelvic Organs: Unremarkable Bones/soft tissues: No acute abnormality. Other: None. IMPRESSION: 1. Left lower lobe pulmonary opacities suggestive of pneumonia. No pleural effusion. 2. Small sliding hiatal hernia. 3. Mild fullness of the bilateral renal pelvises that may represent hydronephrosis or extrarenal pelv is. 4. Circumferential mural thickening of the urinary bladder that could be at least in part due to lack of distention. Recommend correlation with urinalysis to rule out cystitis and follow-up by ultrasou nd to ensure regression and benignity.
[2024-08-03] MEDS ORDERED: POTASSIUM CHL 20MEQ/100ML 100 ML IV ONE (18:30)
[2024-08-03 19:30] VITALS: PULSE 73; RESP 15; O2SAT 97
[2024-08-03] MEDS: MORPHINE SULFATE INJ 2 MG/ml SYRG IM ONE (19:34)
[2024-08-03] MEDS: ONDANSETRON HCL 4 MG/2 ML VIAL IV ONE (19:34)
[2024-08-03] MEDS: MORPHINE SULFATE INJ 2 MG/ml SYRG IV ONE ×2 (19:34→19:48)
[2024-08-03] MEDS: SODIUM CHLORIDE 0.9% 1,000 ML IV ONE ×2 (20:03→23:51)
[2024-08-03] MEDS: cefTRIAXone 1GM/50ML D5W 50 ML IV ONE (20:06)
[2024-08-03] MEDS: POTASSIUM EFFERVESENT TAB 25 MEQ PO ONE (20:08)
[2024-08-03] MEDS: POTASSIUM CHL 20MEQ/50ML 50 ML IV ONE (21:46)
--- NOTE | 2024-08-03 23:04 | DVHHPRES ---
History of Present Illness Resident Creating Document: STORM CARLSON RESIDENT History of Present Illness Patient is a 48-year-old female with past medical history of hypertension and asthma, who comes in due to generalized weakness, dyspnea and abdominal pain. According to the patient, on 08/03/2024 she was at work when she started feeling weak along with difficulty breathing which is what prompted this visit to the hospital. Patient notes having sick contacts at work with a flu-like illness. Patient is also noting a midepigastric pain which she describes as nonradiating, dull and constant, worsened with breathing without any relieving factors. 8/10 in intensity with associated nausea. Denies having similar symptoms in the past. On review of systems patient is complaining of fatigue, chills, shortness of breath, dysuria, urinary frequency and [address] abdomen pelvis showed left lower lung pulmonary opacities suggesting pneumonia and mild fullness of bilateral renal pelvis hydronephrosis or extrarenal pelvis along with a circumferential mural thickening of the urinary bladder. Past Medical History hypertension and asthma Past Surgical History section, cholecystectomy, thyroidectomy? Past Social History Smoking: Denies Alcohol: Occasionally Drugs: Marijuana daily Allergies: Amoxicillin causes hives Review of Systems Constitutional: Yes: Chills, Malaise; No: Fever, Sweats, Weakness, Other Eyes: No: Pain, Vision change, Conjunctivae inflammation, Eyelid inflammation, Other, Redness ENT: No: Ear pain, Ear discharge, Nose pain, Nose discharge, Nose congestion, Mouth pain, Mouth swelling, Throat pain, Throat swelling, Other Respiratory: Shortness of breath; No: Cough, Dry, SOB with excertion, Wheezing, Hemoptysis, Pleuritic Pain, Sputum, Wheezing, Other Cardiovascular: No: Chest Pain, Palpitations, Orthopnea, Paroxysmal Noc. Dyspnea, Edema, Lt Headedness, Other Gastrointestinal: Vomiting; No: Nausea, Abdominal Pain, Diarrhea, Constipation, Melena, Hematochezia, Other Genitourinary: Dysuria, Frequency; No Incontinence, No Hematuria, No Retention, No Other Musculoskeletal: No: other, neck pain, shoulder pain, arm pain, back pain, hand pain, leg pain, foot pain Skin: No: Rash, Lesions, Jaundice, Bruising, Other Neurological: No: Weakness, Numbness, Incoordination, Change in speech, Confusion, Seizures, Other Allergies: Coded Allergies: Amoxicillin (Verified Allergy, Unknown, 02/23/20) Exam Vital Signs Vital Signs Date Time Temp Pulse Resp B/P (MAP) Pulse Ox O2 Delivery O2 Flow Rate FiO2 08/03/24 22:15 68 23 148/80 (102) 97 08/03/24 21:00 99.6 99.6 08/03/24 19:30 Room Air* 0 21 General Appearance: Alert, Oriented X3, Cooperative, mild distress HEENT: Atraumatic, PERRLA, EOMI, Other (Dry mucous membrane) Respiratory: Normal air movement, Other (Trace scattered wheezes) Cardiovascular: Regular rate, Normal S1, Normal S2 Abdominal: Normal bowel sounds, Soft, Other (Mid abdominal tenderness to palpation) Extremities: No edema, Normal pulses Skin: No significant lesion Neuro: Normal gait, Normal speech, Strength at 5/5 X4 ext, Sensation intact Psych/Mental Status: Mental status NL, Mood NL Labs/Xrays Labs Test 08/03/24 15:55 08/03/24 15:41 Range/Units White Blood Count 6.9 4.4-10.8 10^3/uL Red Blood Count 4.14 4.0-5.20 10^6/uL Hemoglobin 13.3 12.2-16.2 g/dL Hematocrit 39.1 36.0-46.0 % Mean Corpuscular Volume 94.5 80.0-100.0 fL Mean Corpuscular Hemoglobin 32.2 H 28.0-32.0 pg Mean Corpuscular Hemoglobin Concent 34.1 32.0-36.0 g/dL Red Cell Distribution Width 13.2 11.8-14.3 % Platelet Count 175 140-450 10^3/uL Mean Platelet Volume 9.3 6.9-10.8 fL Neutrophils (%) (Auto) 86.7 H 37.0-80.0 % Lymphocytes (%) (Auto) 7.6 L 10.0-50.0 % Monocytes (%) (Auto) 4.9 0.0-12.0 % Eosinophils (%) (Auto) 0.5 0.0-7.0 % Basophils (%) (Auto) 0.3 0.0-2.0 % Neutrophils # (Auto) 6.0 1.6-8.6 10 ^3/uL Lymphocytes # (Auto) 0.5 0.4-5.4 10 ^3/uL Monocytes # (Auto) 0.3 0-1.3 10 ^3/uL Eosinophils # (Auto) 0 0-0.8 10 ^3/uL Basophils # (Auto) 0 0-0.2 10 ^3/uL Nucleated Red Blood Cells 0.0 % Sodium Level 140 136-145 mmol/L Potassium Level 2.9 L 3.5-5.1 mmol/L Chloride Level 110 H 98-107 mmol/L Carbon Dioxide Level 26 20-31 mmol/L Anion Gap 4 L 5-15 Blood Urea Nitrogen 14 9-23 mg/dL Creatinine 0.80 0.550-1.02 mg/dL Glomerular Filtration Rate Calc 92 >90 mL/min BUN/Creatinine Ratio 17.5 10.0-20.0 Serum Glucose 95 74-106 mg/dL Calcium Level 9.1 8.7-10.4 mg/dL Total Bilirubin 0.3 0.2-1.0 mg/dL Aspartate Amino Transferase (AST) 11 L 13-40 U/L Alanine Aminotransferase (ALT) 13 7-40 U/L Alkaline Phosphatase 83 46-116 U/L Total Protein 7.2 5.7-8.2 g/dL Albumin 4.3 3.2-4.8 g/dL Lipase 32 12-53 U/L Urine Color Light-yellow Yellow Urine Clarity Clear Clear Urine pH 6.0 5.0-9.0 Urine Specific [place] 1.024 1.001-1.035 Urine Protein Negative Negative Urine Ketones Negative Negative Urine Blood 2+ H Negative /uL Urine Nitrite Negative Negative Urine Bilirubin Negative Negative Urine Urobilinogen Normal Negative mg/dL Urine Leukocyte Esterase Negative Negative /uL Urine RBC 14 0 - 4 /hpf Urine Microscopic WBC 1 0-5 /HPF Urine Squamous Epithelial Cells Few <5 /hpf Urine Bacteria None seen None Seen /hpf Urine Mucus Few None Seen Urine Glucose Normal Normal mg/dL Assessment/Plan Assessment/Plan Acute hypoxic respiratory failure on O2 via NC 2 L Community-acquired pneumonia, Gram-positive versus Gram-negative Sepsis due to above Acute intractable abdominal pain - CT abdomen pelvis: Left lower lobe pulmonary opacities suggestive of pneumonia. No pleural effusion. Small sliding hiatal hernia.Mild fullness of the bilateral renal pelvises that may represent hydronephrosis or extrarenal pelvis. Circumferential mural thickening of the urinary bladder that could be at least in part due to lack of distention. Recommend correlation with urinalysis to rule out cystitis and follow-up by ultrasound to ensure regression and benignity . - IV ceftriaxone, IV azithromycin - IV NS 1 L bolus x2, IV NS at 75 cc/hour maintenance - consider chest CT Hypertensive urgency Possible hypertensive heart disease - Resumed home medication nifedipine and losartan - ordered echocardiogram History of asthma, in mild exacerbation - ipratropium albuterol med nebs scheduled Marijuana use disorder - counseled extensively Hypokalemia - repleted PUD prophylaxis: protonix 40mg DVT prophylaxis: Levonox 40mg Goals of care: Full code, discussed for >16 minutes on 08/03/2024 Plan discussed with patient Plan discussed with Dr. Jeffries Plan discussed with: Patient, Other (RN) Date of Service: Aug 03, 2024 Billing Provider: MICHELLE JEFFRIES MD Common Visit Codes: [id number] INP/OBS CARE (HIGH) STORM CARLSON RESIDENT Aug 03, 2024 23:03
[2024-08-03] MEDS: IPRATROPIUM BROM 0.5 MG/2.5ML INH SOL NEB SCH (23:33)
[2024-08-03] MEDS: ALBUTEROL SULF 2.5 MG/0.5ML(0.5%) NEB SOLN NEB SCH (23:33)
--- NOTE | 2024-08-03 23:38 | DVH ---
RENAL ULTRASOUND CLINICAL HISTORY: renal cyst abdominal pain TECHNIQUE: Multiple grayscale ultrasound images were obtained through the kidneys and urinary bladder . COMPARISON: CT abdomen pelvis from same day FINDINGS: Right kidney: Measures 11.6 cm. No hydronephrosis. Left kidney: Measures 10.3 cm. No hydronephrosis. Urinary bladder: Unremarkable. IMPRESSION: Normal size kidneys without evidence of hydronephrosis. The cystic lesion that was seen in the left kidney on same day CT abdomen and pelvis was not visualiz ed on current study
[2024-08-04] VITALS (20 sets, daily range): BP systolic 115–162; BP diastolic 59–88; PULSE 74–100; RESP 16–20; TEMP 98.2–99.2; O2SAT 18–100
[2024-08-04] MEDS: AZITHROMYCIN 500MG/ 250ML 250 ML IV ONE (00:11)
[2024-08-04] MEDS: LOSARTAN POTASSIUM 50 MG TAB PO SCH (00:12)
[2024-08-04] MEDS: ONDANSETRON HCL 4 MG/2 ML VIAL IV PRN (00:50)
[2024-08-04] MEDS: NIFEdipine ER 30 MG TAB PO SCH (01:30)
[2024-08-04] MEDS: hydrALAZINE HCL 20 MG/ML VL IV ONE (01:41)
[2024-08-04 01:44] LABS: COVID19 ANTIGEN SOFIA FIA NEGATIVE (NEGATIVE)
[2024-08-04] MEDS: ACETAMINOPHEN 325 MG TAB PO PRN (01:46)
[2024-08-04 02:00] LABS: Rapid Influenza A Negative (Negative); Rapid Influenza B Negative (Negative)
[2024-08-04 03:19] LABS: Amphetamine Screen, Urine Neg (NEGATIVE); Barbiturate Scree,Urine Neg (NEGATIVE); Benzodiazephine Screen, Urine Neg (NEGATIVE); Cannabinoid Screen, Urine Pos (NEGATIVE); Cocaine Screen, Urine Neg (NEGATIVE); Opiate Scree,Urine Neg (NEGATIVE); Phencyclidine Screen, Urine Neg (NEGATIVE)
--- NOTE | 2024-08-04 05:57 | DVH ---
CHEST RADIOGRAPH Indication: SOB Technique: Single frontal view of the chest was obtained Comparison: XY CHEST XRAY 1 VIEW on DOS: 05/04/23, XY CHEST XRAY 1 VIEW on DOS: 02/19/23, CHEST PORTAB LE on DOS: 05/13/22 FINDINGS: Lines and Tubes: None Lungs: There is bilateral pulmonary interstitial prominence. There is a rounded density overlying the left lower thorax. Pleura: No effusion. No pneumothorax. Cardiomediastinal contours: Unremarkable Bones: No acute osseous abnormality. IMPRESSION: 1. Mild pulmonary vascular congestion. Rounded density overlying the left lower thorax which could b e artifactual however please correlate clinically. Is noncontrast chest CT may be obtained if this i s not correspond to artifact.
[2024-08-04] MEDS ORDERED: IBUP-1456 PO (06:05)
[2024-08-04] MEDS: SODIUM CHLORIDE 0.9% 1,000 ML IV ONE (06:58)
[2024-08-04 07:29] LABS: Basophils # (auto) 0 10 ^3/uL (0-0.2); Basophils % (auto) 0.3 % (0.0-2.0); Eosinophils # (auto) 0 10 ^3/uL (0-0.8); Eosinophils % (auto) 0.1 % (0.0-7.0); Hematocrit 40.4 % (36.0-46.0); Hemoglobin 13.8 g/dL (12.2-16.2); Lymphocytes # (auto) 0.6 10 ^3/uL (0.4-5.4); Lymphocytes % (auto) 10.9 % (10.0-50.0); Mean Corpuscular Hemoglobin 32.2 pg (28.0-32.0); Mean Corpuscular Hgb Conc. 34.2 g/dL (32.0-36.0); Mean Corpuscular Volume 94.2 fL (80.0-100.0); Monocytes # (auto) 0.3 10 ^3/uL (0-1.3); Monocytes % (auto) 6.1 % (0.0-12.0); Neutrophils # (auto) 4.6 10 ^3/uL (1.6-8.6); Neutrophils % (auto) 82.6 % (37.0-80.0); Nucleated Red Blood Cells % 0.1 %; Platelet Count (auto) 159 10^3/uL (140-450); Red Blood Cells 4.29 10^6/uL (4.0-5.20); Red Cell Distribution Width 13.1 % (11.8-14.3); White Blood Cell 5.6 10^3/uL (4.4-10.8)
[2024-08-04 07:40] LABS: Alanine Aminotransferase 13 U/L (7-40); Albumin 4.2 g/dL (3.2-4.8); Alkaline Phosphatase 83 U/L (46-116); Anion Gap 7 (5-15); BUN/Creatinine Ratio 8.3 (10.0-20.0); Calcium 9.1 mg/dL (8.7-10.4); Carbon Dioxide 25 mmol/L (20-31); Glucose 101 mg/dL (74-106); Sodium 142 mmol/L (136-145); Total Protein 7.2 g/dL (5.7-8.2)
[2024-08-04 07:41] LABS: Aspartate Aminotransferase 11 U/L (13-40); Bilirubin, Total 0.6 mg/dL (0.2-1.0); Blood Urea Nitrogen 6 mg/dL (9-23); Chloride 110 mmol/L (98-107); Folate (Folic Acid) 13.51 ng/mL (>5.38); Potassium 3.1 mmol/L (3.5-5.1)
[2024-08-04] MEDS ORDERED: NIFEdipine ER 30 MG TAB PO SCH (10:00)
[2024-08-04] MEDS: POTASSIUM EFFERVESENT TAB 25 MEQ PO ONE (10:00)
[2024-08-04] MEDS: ENOXAPARIN SOD 40 MG/0.4 ML SYRINGE SC SCH (10:02)
[2024-08-04] MEDS: PANTOPRAZOLE 40 MG/10 ML VIAL INJ IV SCH (10:02)
--- NOTE | 2024-08-04 13:26 | DVHSR ---
APPROVED REPORT EXAM: Two-dimensional and M-mode echocardiogram with Doppler and color Doppler. Blood Pressure: 144/84 mmHg INDICATION Hypertension SOB RISK FACTORS Height: 62, Weight: 181 DIMENSIONS LVDd4.5 (3.8-5.7cm)LA (2D)4.2 (1.9-4.0cm)Aortic Root3.1 (2.0-3.7cm) LVDs2.7 (2.5-4.0cm)LA (MM) (1.9-4.0cm)Aortic Cusp Exc1.8 (1.5-2.0cm) EF (%) 70.0 (55-70%)Rt. Atrium4.5 (1.9-4.0cm)Asc. Aorta cm IVSd1.1 (0.7-1.1cm)RV (D) (1.8-2.4cm) PWd1.0 (0.7-1.1cm) Mitral Valve MitralMitral Stenosis E wave0.89m/sMV Mean GR.mmHg A wave1.03m/sMV Peak GR.mmHg E/A ratio0.92D MVAcm2 DECEL [id number] 1/2 [id number] IVRTmsDop MVA3.71cm2 Aortic Valve Aortic ValveAortic Stenosis V11.53m/Fouzia Mean GR.8mmHg V22.04m/Fouzia Peak GR.17mmHg LVOT Diameter1.8 (1.8-2.4cm)Doppler AVA1.91cm2 Pulmonic Valve V21.40m/s Conclusion lvef 70% normal LV function and size mild LVH normal RV function normal atria no severe valve abnormalities noted normal pericardium
--- NOTE | 2024-08-04 18:13 | DVHPN2 ---
Subjective In bed still feeling SOB on minimal exertion and on oxygen at 4L Changes from previous H/P or p: No Changes Eyes: No Pain, No Vision change, No Conjunctivae inflammation, No Eyelid inflammation, No Other, No Redness ENT: No Ear pain, No Ear discharge, No Nose pain, No Nose discharge, No Nose congestion, No Mouth pain, No Mouth swelling, No Throat pain, No Throat swelling, No Other Cardiovascular: No Chest Pain, No Palpitations, No Orthopnea, No Paroxysmal Noc. Dyspnea, No Edema, No Lt Headedness, No Other Respiratory: No Cough, No Dry; Shortness of breath; No SOB with excertion, No Wheezing, No Hemoptysis, No Pleuritic Pain, No Sputum, No Other Gastrointestinal: No Nausea; Vomiting; No Abdominal Pain, No Diarrhea, No Constipation, No Melena, No Hematochezia, No Other Genitourinary: Dysuria, Frequency; No Incontinence, No Hematuria, No Retention, No Other Musculoskeletal: No other, No neck pain, No shoulder pain, No arm pain, No back pain, No hand pain, No leg pain, No foot pain Skin: No Rash, No Lesions, No Jaundice, No Bruising, No Other Objective Vitals Vital Signs Date Time Temp Pulse Resp B/P (MAP) Pulse Ox O2 Delivery O2 Flow Rate FiO2 08/04/24 14:28 80 20 18 08/04/24 13:00 99.2 131/60 (83) 99.2 08/04/24 10:00 Room Air 0.0 08/04/24 10:00 21 Intake/Output Intake and Output 08/04/24 07:00 Intake Total 2350 ml Output Total 0 ml Balance 2350 ml Intake Oral 0 ml IV Total 2350 ml Output Urine Total 0 ml General Appearance: Alert, Oriented X3 HEENT: Atraumatic, PERRLA Lungs: Other (Crepitus bilateral lower lobes) Cardiovascular: Regular rate, Normal S1, Normal S2 Abdomen: Normal bowel sounds Medications Current Medications Medications Dose Ordered Sig/Doris Route Start Time Stop Time Status Last Admin Dose Admin Acetaminophen 325 mg Q4HP PRN PO 08/03/24 23:00 08/04/24 01:46 325 MG Ondansetron HCl 4 mg Q4HP PRN IV 08/03/24 23:00 08/04/24 00:50 4 MG Enoxaparin Sodium 40 mg DAILY SC 5/1/25 10:00 08/04/24 10:02 40 MG Ceftriaxone Sodium 50 ml @ 100 mls/hr DAILY@2100 IV 08/04/24 21:00 Azithromycin 250 ml @ 125 mls/hr DAILY IV 08/05/24 10:00 Ipratropium [place] 0.5 mg Q4HR NEB 08/03/24 23:00 08/04/24 14:17 0.5 MG Albuterol 2.5 mg Q4HR NEB 08/03/24 23:00 08/04/24 14:17 2.5 MG Losartan Potassium 75 mg DAILY PO 08/03/24 23:15 08/04/24 10:01 75 MG Nifedipine 60 mg DAILY PO 08/04/24 01:15 08/04/24 10:00 60 MG Pantoprazole Sodium 40 mg DAILY IV 08/04/24 10:00 08/04/24 10:02 40 MG Throat Lozenges 1 flako Q2HP PRN MT 08/04/24 08:15 Laboratory Results Laboratory Tests 08/04/24 06:36 Chemistry Test 08/04/24 06:36 Albumin 4.2 g/dL (3.2-4.8) Calcium Level 9.1 mg/dL (8.7-10.4) Total Protein 7.2 g/dL (5.7-8.2) LFT Test 08/04/24 06:36 Alanine Aminotransferase (ALT) 13 U/L (7-40) Alkaline Phosphatase 83 U/L (46-116) Aspartate Amino Transferase (AST) 11 U/L (13-40) L Total Bilirubin 0.6 mg/dL (0.2-1.0) HgA1c, TSH Test 08/03/24 23:08 08/04/24 06:36 Thyroid Stimulating Hormone (TSH) 1.82 uIU/mL (0.55-4.78) 0.89 uIU/mL (0.55-4.78) Hemoglobin A1c 5.6 % A1C (<5.7) Urinalysis Test 08/03/24 15:41 Urine Color Light-yellow (Yellow) Urine Clarity Clear (Clear) Urine pH 6.0 (5.0-9.0) Urine Specific [place] 1.024 (1.001-1.035) Urine Protein Negative (Negative) Urine Ketones Negative (Negative) Urine Blood 2+ /uL (Negative) H Urine Nitrite Negative (Negative) Urine Bilirubin Negative (Negative) Urine Urobilinogen Normal mg/dL (Negative) Urine Leukocyte Esterase Negative /uL (Negative) Urine RBC 14 /hpf (0 - 4) Urine Microscopic WBC 1 /HPF (0-5) Urine Squamous Epithelial Cells Few /hpf (<5) Urine Bacteria None seen /hpf (None Seen) Urine Mucus Few (None Seen) Urine Potassium 42 mmol/L (12-62) Urine Glucose Normal mg/dL (Normal) Urine Test Negative (Negative) Assessment/Plan Assessment/Plan Acute hypoxic respiratory failure on O2 via NC 2 L Community-acquired pneumonia, Gram-positive versus Gram-negative Sepsis due to above Acute intractable abdominal pain - CT abdomen pelvis: Left lower lobe pulmonary opacities suggestive of pneumonia. No pleural effusion. Small sliding hiatal hernia.Mild fullness of the bilateral renal pelvises that may represent hydronephrosis or extrarenal pelvis. Circumferential mural thickening of the urinary bladder that could be at least in part due to lack of distention. Recommend correlation with urinalysis to rule out cystitis and follow-up by ultrasound to ensure regression and benignity. - IV ceftriaxone, IV azithromycin Hypertensive urgency Possible hypertensive heart disease - Resumed home medication nifedipine and losartan - Echo pending History of asthma, in mild exacerbation - ipratropium albuterol med nebs scheduled Marijuana use disorder - counseled extensively Hypokalemia - repleted Plan discussed with: Patient Date of Service: August 04, 2024 Billing Provider: COLLINS HUTCHISON MD Common Visit Codes: [id number] INP/OBS CARE(HIGH) COLLINS HUTCHISON MD August 04, 2024 18:13
[2024-08-04] MEDS: cefTRIAXone 1GM/50ML D5W 50 ML IV SCH (21:00)
[2024-08-05] VITALS (20 sets, daily range): BP systolic 103–129; BP diastolic 58–74; PULSE 72–90; RESP 14–20; TEMP 97.8–98.5; O2SAT 94–100
[2024-08-05] MEDS: AZITHROMYCIN 500MG/ 250ML 250 ML IV SCH (09:22)
--- NOTE | 2024-08-05 16:33 | DVHPN2 ---
Subjective In bed still feeling SOB on minimal exertion and on oxygen at 4L Changes from previous H/P or p: No Changes Eyes: No Pain, No Vision change, No Conjunctivae inflammation, No Eyelid inflammation, No Other, No Redness ENT: No Ear pain, No Ear discharge, No Nose pain, No Nose discharge, No Nose congestion, No Mouth pain, No Mouth swelling, No Throat pain, No Throat swelling, No Other Cardiovascular: No Chest Pain, No Palpitations, No Orthopnea, No Paroxysmal Noc. Dyspnea, No Edema, No Lt Headedness, No Other Respiratory: No Cough, No Dry; Shortness of breath; No SOB with excertion, No Wheezing, No Hemoptysis, No Pleuritic Pain, No Sputum, No Other Gastrointestinal: No Nausea; Vomiting; No Abdominal Pain, No Diarrhea, No Constipation, No Melena, No Hematochezia, No Other Genitourinary: Dysuria, Frequency; No Incontinence, No Hematuria, No Retention, No Other Musculoskeletal: No other, No neck pain, No shoulder pain, No arm pain, No back pain, No hand pain, No leg pain, No foot pain Skin: No Rash, No Lesions, No Jaundice, No Bruising, No Other Objective Vitals Vital Signs Date Time Temp Pulse Resp B/P (MAP) Pulse Ox O2 Delivery O2 Flow Rate FiO2 08/05/24 13:40 86 16 100 08/05/24 13:00 98.5 105/61 (76) 98.5 08/05/24 10:00 Nasal Cannula 2.0 08/05/24 10:00 28 Intake/Output Intake and Output 08/05/24 07:00 Intake Total 2086 ml Balance 2086 ml Intake Oral 2036 ml IV Total 50 ml # Voids 12 General Appearance: Alert, Oriented X3 HEENT: Atraumatic, PERRLA Lungs: Other (Crepitus bilateral lower lobes) Cardiovascular: Regular rate, Normal S1, Normal S2 Abdomen: Normal bowel sounds Medications Current Medications Medications Dose Ordered Sig/Doris Route Start Time Stop Time Status Last Admin Dose Admin Acetaminophen 325 mg Q4HP PRN PO 08/03/24 23:00 08/05/24 15:50 325 MG Ondansetron HCl 4 mg Q4HP PRN IV 08/03/24 23:00 08/04/24 00:50 4 MG Enoxaparin Sodium 40 mg DAILY SC 08/04/24 10:00 08/05/24 09:30 40 MG Ceftriaxone Sodium 50 ml @ 100 mls/hr DAILY@2100 IV 08/04/24 21:00 08/04/24 21:00 100 MLS/HR Azithromycin 250 ml @ 125 mls/hr DAILY IV 08/05/24 10:00 08/05/24 09:22 125 MLS/HR Ipratropium [place] 0.5 mg Q4HR NEB 08/03/24 23:00 08/05/24 13:33 0.5 MG Albuterol 2.5 mg Q4HR NEB 08/03/24 23:00 08/05/24 13:33 2.5 MG Losartan Potassium 75 mg DAILY PO 08/03/24 23:15 08/05/24 09:28 75 MG Nifedipine 60 mg DAILY PO 08/04/24 01:15 08/05/24 09:29 60 MG Pantoprazole Sodium 40 mg DAILY IV 08/04/24 10:00 08/05/24 09:26 40 MG Throat Lozenges 1 flako Q2HP PRN MT 08/04/24 08:15 Laboratory Results Laboratory Tests 08/04/24 06:36 Urinalysis Test 08/03/24 15:41 Urine Color Light-yellow (Yellow) Urine Clarity Clear (Clear) Urine pH 6.0 (5.0-9.0) Urine Specific [place] 1.024 (1.001-1.035) Urine Protein Negative (Negative) Urine Ketones Negative (Negative) Urine Blood 2+ /uL (Negative) H Urine Nitrite Negative (Negative) Urine Bilirubin Negative (Negative) Urine Urobilinogen Normal mg/dL (Negative) Urine Leukocyte Esterase Negative /uL (Negative) Urine RBC 14 /hpf (0 - 4) Urine Microscopic WBC 1 /HPF (0-5) Urine Squamous Epithelial Cells Few /hpf (<5) Urine Bacteria None seen /hpf (None Seen) Urine Mucus Few (None Seen) Urine Potassium 42 mmol/L (12-62) Urine Glucose Normal mg/dL (Normal) Urine Test Negative (Negative) Microbiology Microbiology Date/Time Source Procedure Growth Status 08/04/24 17:00 Sputum Gram Stain - Final Resulted 08/04/24 17:00 Sputum Respiratory Culture - Preliminary Resulted 08/03/24 23:08 Blood Blood Culture - Preliminary NO GROWTH AFTER 24 HOURS OF INCUBATION. Resulted Assessment/Plan Assessment/Plan Acute hypoxic respiratory failure on O2 via NC 2 L Community-acquired pneumonia, Gram-positive versus Gram-negative Sepsis due to above Acute intractable abdominal pain - CT abdomen pelvis: Left lower lobe pulmonary opacities suggestive of pneumonia. No pleural effusion. Small sliding hiatal hernia.Mild fullness of the bilateral renal pelvises that may represent hydronephrosis or extrarenal pelvis. Circumferential mural thickening of the urinary bladder that could be at least in part due to lack of distention. Recommend correlation with urinalysis to rule out cystitis and follow-up by ultrasound to ensure regression and benignity. - IV ceftriaxone, IV azithromycin Hypertensive urgency Possible hypertensive heart disease - Resumed home medication nifedipine and losartan - Echo pending History of asthma, in mild exacerbation - ipratropium albuterol med nebs scheduled Marijuana use disorder - counseled extensively Hypokalemia - repleted Plan discussed with: Patient Date of Service: August 05, 2024 Billing Provider: COLLINS HUTCHISON MD Common Visit Codes: [id number] INP/OBS CARE(HIGH) COLLINS HUTCHISON MD August 05, 2024 16:33
[2024-08-06] VITALS (22 sets, daily range): BP systolic 109–124; BP diastolic 62–76; PULSE 74–87; RESP 16–20; TEMP 96.6–98.7; O2SAT 96–100
[2024-08-06] MEDS: THROAT LOZENGES(CEPASTAT) MT PRN (16:20)
--- NOTE | 2024-08-06 18:37 | DVHPN2 ---
Subjective In bed still feeling SOB on minimal exertion and on oxygen at 4L Changes from previous H/P or p: No Changes Eyes: No Pain, No Vision change, No Conjunctivae inflammation, No Eyelid inflammation, No Other, No Redness ENT: No Ear pain, No Ear discharge, No Nose pain, No Nose discharge, No Nose congestion, No Mouth pain, No Mouth swelling, No Throat pain, No Throat swelling, No Other Cardiovascular: No Chest Pain, No Palpitations, No Orthopnea, No Paroxysmal Noc. Dyspnea, No Edema, No Lt Headedness, No Other Respiratory: No Cough, No Dry; Shortness of breath; No SOB with excertion, No Wheezing, No Hemoptysis, No Pleuritic Pain, No Sputum, No Other Gastrointestinal: No Nausea; Vomiting; No Abdominal Pain, No Diarrhea, No Constipation, No Melena, No Hematochezia, No Other Genitourinary: Dysuria, Frequency; No Incontinence, No Hematuria, No Retention, No Other Musculoskeletal: No other, No neck pain, No shoulder pain, No arm pain, No back pain, No hand pain, No leg pain, No foot pain Skin: No Rash, No Lesions, No Jaundice, No Bruising, No Other Objective Vitals Vital Signs Date Time Temp Pulse Resp B/P (MAP) Pulse Ox O2 Delivery O2 Flow Rate FiO2 08/06/24 17:00 98.5 78 20 116/76 (89) 98 98.5 08/06/24 14:14 Nasal Cannula* 2 28 Intake/Output Intake and Output 08/06/24 07:00 Intake Total 1660 ml Balance 1660 ml Intake Oral 1360 ml IV Total 300 ml # Voids 6 General Appearance: Alert, Oriented X3 HEENT: Atraumatic, PERRLA Lungs: Other (Crepitus bilateral lower lobes) Cardiovascular: Regular rate, Normal S1, Normal S2 Abdomen: Normal bowel sounds Medications Current Medications Medications Dose Ordered Sig/Doris Route Start Time Stop Time Status Last Admin Dose Admin Acetaminophen 325 mg Q4HP PRN PO 08/03/24 23:00 08/06/24 18:18 325 MG Ondansetron HCl 4 mg Q4HP PRN IV 08/03/24 23:00 08/04/24 00:50 4 MG Enoxaparin Sodium 40 mg DAILY SC 08/04/24 10:00 08/06/24 09:59 40 MG Ceftriaxone Sodium 50 ml @ 100 mls/hr DAILY@2100 IV 08/04/24 21:00 08/05/24 20:44 100 MLS/HR Azithromycin 250 ml @ 125 mls/hr DAILY IV 08/05/24 10:00 08/06/24 10:06 125 MLS/HR Ipratropium [place] 0.5 mg Q4HR NEB 08/03/24 23:00 08/06/24 14:10 0.5 MG Albuterol 2.5 mg Q4HR NEB 08/03/24 23:00 08/06/24 14:10 2.5 MG Losartan Potassium 75 mg DAILY PO 08/03/24 23:15 08/05/24 09:28 75 MG Nifedipine 60 mg DAILY PO 08/04/24 01:15 08/05/24 09:29 60 MG Pantoprazole Sodium 40 mg DAILY IV 08/04/24 10:00 08/06/24 09:56 40 MG Throat Lozenges 1 flako Q2HP PRN MT 08/04/24 08:15 Laboratory Results Laboratory Tests 08/04/24 06:36 Urinalysis Test 08/03/24 15:41 Urine Color Light-yellow (Yellow) Urine Clarity Clear (Clear) Urine pH 6.0 (5.0-9.0) Urine Specific [place] 1.024 (1.001-1.035) Urine Protein Negative (Negative) Urine Ketones Negative (Negative) Urine Blood 2+ /uL (Negative) H Urine Nitrite Negative (Negative) Urine Bilirubin Negative (Negative) Urine Urobilinogen Normal mg/dL (Negative) Urine Leukocyte Esterase Negative /uL (Negative) Urine RBC 14 /hpf (0 - 4) Urine Microscopic WBC 1 /HPF (0-5) Urine Squamous Epithelial Cells Few /hpf (<5) Urine Bacteria None seen /hpf (None Seen) Urine Mucus Few (None Seen) Urine Potassium 42 mmol/L (12-62) Urine Glucose Normal mg/dL (Normal) Urine Test Negative (Negative) Microbiology Microbiology Date/Time Source Procedure Growth Status 08/04/24 17:00 Sputum Gram Stain - Final Resulted 08/04/24 17:00 Sputum Respiratory Culture - Preliminary Resulted 08/03/24 23:08 Blood Blood Culture - Preliminary NO GROWTH AFTER 48 HOURS OF INCUBATION. Resulted Assessment/Plan Assessment/Plan Acute hypoxic respiratory failure on O2 via NC 2 L Community-acquired pneumonia, Gram-positive versus Gram-negative Sepsis due to above Acute intractable abdominal pain - CT abdomen pelvis: Left lower lobe pulmonary opacities suggestive of pneumonia. No pleural effusion. Small sliding hiatal hernia.Mild fullness of the bilateral renal pelvises that may represent hydronephrosis or extrarenal pelvis. Circumferential mural thickening of the urinary bladder that could be at least in part due to lack of distention. Recommend correlation with urinalysis to rule out cystitis and follow-up by ultrasound to ensure regression and benignity. - IV ceftriaxone, IV azithromycin Hypertensive urgency Possible hypertensive heart disease - Resumed home medication nifedipine and losartan - Echo pending History of asthma, in mild exacerbation - ipratropium albuterol med nebs scheduled Marijuana use disorder - counseled extensively Hypokalemia - repleted Plan discussed with: Patient Date of Service: August 06, 2024 Billing Provider: COLLINS HUTCHISON MD Common Visit Codes: [id number] INP/OBS CARE(HIGH) COLLINS HUTCHISON MD August 06, 2024 18:37
[2024-08-06] MEDS ORDERED: DOCUSATE SOD 100 MG CAP PO PRN (21:00)
[2024-08-06] MEDS: DOCUSATE SOD 100 MG CAP PO ONE (22:45)
[2024-08-07] VITALS (16 sets, daily range): BP systolic 116–145; BP diastolic 74–84; PULSE 67–87; RESP 18–19; TEMP 96.4–98.3; O2SAT 96–100
[2024-08-07] MEDS ORDERED: CIPR500T4 PO (12:04)
== END 2024-08-07 14:13 | disposition home or self-care (01) | DRG 871 ==
LOC: ER 15:27 → OVERFLOW 22:52 → CENTRAL 23:03
PROVIDERS: ADMIT Hospitalist; ATTEND Hospitalist
DX: A41.50 Gram-negative sepsis, unspecified (principal); J15.69 Pneumonia due to other Gram-negative bacteria; J96.01 Acute respiratory failure with hypoxia; J15.9 Unspecified bacterial pneumonia; N13.6 Pyonephrosis; Z20.822 Contact with and (suspected) exposure to COVID-19; E87.6 Hypokalemia; I16.0 Hypertensive urgency; J45.909 Unspecified asthma, uncomplicated; K44.9 Diaphragmatic hernia without obstruction or gangrene; F12.90 Cannabis use, unspecified, uncomplicated; I11.9 Hypertensive heart disease without heart failure; K21.9 Gastro-esophageal reflux disease without esophagitis; Z88.1 Allergy status to other antibiotic agents; Z79.899 Other long term (current) drug therapy; Z90.710 Acquired absence of both cervix and uterus; Z90.49 Acquired absence of other specified parts of digestive tract; Z88.0 Allergy status to penicillin
CPT/HCPCS: 36415; 71045; 74176; 76775; 80053; 80307; 81001; 81025; 82306; 82550; 82607; 82746; 83036; 83605; 83690; 84132; 84133; 84443; 85025; 87040; 87070; 87077; 87186; 87205; 87426; 87804; 92610; 93306; 94640; 96365; 96375; G0378; J2405; J2470; J3480